=== PATIENT | male | born 1965 | race Caucasian/White ===

== ENCOUNTER → 2020-10-06 07:54 | Outpatient (CLI) | payer OTHER, SELFPAY ==
--- NOTE | ~2020-10-06 | CT_ITS ---
EXAMINATION: CT lung screening DATE: 10/06/2020 08:14 INDICATION: Personal history of nicotine dependence, current smoker with 40 pack year history TECHNIQUE: Computed tomography (CT) of the chest was performed without intravenous contrast. The dose -length product (DLP) was 270.57 mGy-cm. 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 COMPARISON: None FINDINGS: There is mild emphysema. No suspicious pulmonary nodules are identified. The lungs are free of acute opacities. There is no pleural effusion or pneumothorax. No pathologically enlarged thoraci c lymph nodes are identified. The heart size is normal. There is mild thoracic spondylosis. IMPRESSION: 1. Lung-RADS category 1: Negative. Continue annual screening with noncontrast low-dose chest CT in 12 months. Reviewed, dictated and finalized at location A. ASSISTANT IMPRESSION: 1. Lung-RADS category 1: Negative. Continue annual screening with noncontrast l ow-dose chest CT in 12 months.
== END ==
PROVIDERS: PCP Family Medicine; Visit Provider Family Medicine
DX: Z12.2 Encounter for screening for malignant neoplasm of respiratory organs (principal); Z87.891 Personal history of nicotine dependence
CPT/HCPCS: 71271

== ENCOUNTER → 2021-04-22 08:53 | Outpatient (CLI) | payer OTHER, SELFPAY ==
[2021-04-22 18:14] LABS: SARS-CoV-2 RNA PCR Negative
== END ==
PROVIDERS: PCP Family Medicine; Visit Provider Family Medicine
DX: R05 Cough (principal); Z20.822 Contact with and (suspected) exposure to COVID-19
CPT/HCPCS: C9803; U0003; U0005

== ENCOUNTER 2021-04-22 19:15 | Emergency (ER) | payer OTHER, SELFPAY ==
[2021-04-22 19:22] VITALS: BP 147/83; PULSE 98; RESP 18; TEMP 36.8; O2SAT 96
--- NOTE | 2021-04-22 19:25 | ED.URI ---
HPI - URI/Sore Throat General Chief Complaint: Upper Respiratory Infection Stated Complaint: Cough,Chest Congestion,Shortness of breathe History of Present Illness HPI Narrative: This is a 55 year old that presents with shortness of breath and coughing with sinus drainage . Patient states he was tested for Covid -19 and he was negative today but he has this congestion he states in his chest that makes him feel short of breath. Patient denies any nausea and or vomiting and no fever. Related Data Home Medications Medication Instructions Recorded Confirmed cetirizine 10 mg tablet 10 mg PO DAILY 09/29/19 04/22/21 dapsone 25 mg tablet 50 mg PO DAILY tablet 09/29/19 04/22/21 vitamins A,C,N-tdvm-bbilaa 14,320 1 cap PO BID 09/29/19 04/22/21 unit-226 mg-200 unit capsule potassium citrate 10 mEq (1,080 2,160 mg PO BID 09/29/20 04/22/21 mg) tablet,extended release Allergies Allergy/AdvReac Type Severity Reaction Status Date / Time citalopram Allergy Unknown Unknown Verified 04/22/21 19:32 gluten Allergy Unknown BLISTERS Verified 04/22/21 19:32 NKDA Allergy Unknown UNKNOWN Uncoded 04/22/21 19:32 Review of Systems Review of Systems: CONSTITUTIONAL: Denies fever, chills, or sweats. EYES: Denies visual changes, redness, or discharge. ENT: reports rhinorrhea, congestion, sore throat, or otalgia. CARDIOVASCULAR:Denies chest pain, palpitations, or edema. RESPIRATORY: Denies cough or dyspnea. GASTROINTESTINAL: Denies abdominal pain, nausea, vomiting, or diarrhea. GENITOURINARY: Denies dysuria or hematuria. SKIN:[Denies rash or itching. MUSCULOSKELETAL:Denies back pain, joint pain, or myalgia. NEUROLOGIC: Denies headache, numbness, or weakness. PSYCHIATRIC:Denies anxiety or depression [facility] Past Medical History Medical History (Updated 04/22/21 @ 19:55 by Rosalinda Rice NP) Nephrolithiasis Family History Family History Father Hypertension Malignant neoplasm of prostate Sibling Family history of malignant neoplasm of brain Other Cerebrovascular accident Diabetes mellitus Family history of malignant neoplasm Social History Social History (Updated 09/29/20 @ 08:31 by Erica Ray) Social History: Smoking status: Current some day smoker Tobacco type: e-cigarettes/vaping Second hand tobacco smoke exposure: No Alcohol intake: never Alcohol use details: RARE Substance use: never Substance use type: does not use Gender identity (if verbalized by the patient): Male Sexual Orientation (if Verbalized by the Patient): Straight or Heterosexual Comments At time as signature, I have reviewed and agree with nursing past medical, social, surgical and family history. Please see nursing chart for further information. There is no relevant family history pertinent to the presenting complaint. Exam Narrative: GENERAL:Well-appearing, well-nourished, and in no acute distress. HEAD:Normocephalic, atraumatic. EYES: PERRLA and EOMI. ENT: Nares clear, moderate rhinorrhea copious mucous membranes moist. NECK: Supple. CHEST: clear to course on the right side there was minimal but intermittent wheeze noted to auscultation. No respiratory distress. HEART: no chest pain Normal peripheral pulses. ABDOMEN: Soft, normal active bowel sounds. EXTREMITIES: Normal range of motion. No edema. SKIN: Warm, dry, no rash. NEURO: No focal deficits. Alert and oriented x3. Course Vital Signs Vital signs: Vital Signs Temperature 98.2 F 04/22/21 19:22 Pulse Rate 98 04/22/21 19:22 Respiratory Rate 18 04/22/21 19:22 Blood Pressure 147/83 H 04/22/21 19:22 Pulse Oximetry 96 04/22/21 19:22 Temperature 98.2 F 04/22/21 19:22 Pulse Rate 98 04/22/21 19:22 Respiratory Rate 18 04/22/21 19:22 Blood Pressure 147/83 H 04/22/21 19:22 Pulse Oximetry 96 04/22/21 19:22 MDM - URI/Sore Throat Differential Diagnosis Diff
== END 2021-04-22 20:07 | disposition home or self-care (01) ==
PROVIDERS: Emergency Provider Nurse Practitioner Family; PCP Family Medicine
DX: J40 Bronchitis, not specified as acute or chronic (principal); F17.290 Nicotine dependence, other tobacco product, uncomplicated
CPT/HCPCS: 99213; G0463

== ENCOUNTER 2021-04-26 14:37 | Outpatient (CLI) | payer OTHER, SELFPAY ==
--- NOTE | ~2021-04-26 | XR_ITS ---
EXAMINATION: XR chest 2V DATE: 04/26/2021 14:54 INDICATION: Cough TECHNIQUE: PA and lateral views of the chest are obtained. COMPARISON: None available FINDINGS: The lungs are free of acute opacities. There is no pleural effusion or pneumothorax. The ca rdiomediastinal silhouette is normal. There is mild thoracic spondylosis. IMPRESSION: 1. No acute cardiopulmonary abnormality. Reviewed, dictated and finalized at location B.
== END 2021-04-26 14:38 | disposition home or self-care (01) ==
LOC: ANHIMG 14:42
PROVIDERS: PCP Family Medicine; Visit Provider Physician Assistant
DX: R05 Cough (principal); R06.02 Shortness of breath
CPT/HCPCS: 71046

== ENCOUNTER → 2021-07-12 01:55 | Outpatient (CLI) | payer OTHER, SELFPAY ==
[2021-07-12 17:56] LABS: SARS-CoV-2 RNA PCR Negative
== END ==
PROVIDERS: PCP Family Medicine; Visit Provider Physician Assistant
DX: R68.89 Other general symptoms and signs (principal); R05.9 Cough, unspecified; J02.9 Acute pharyngitis, unspecified; Z20.822 Contact with and (suspected) exposure to COVID-19
CPT/HCPCS: C9803; U0003; U0005

== ENCOUNTER 2021-08-10 08:02 | Outpatient (CLI) | payer OTHER, SELFPAY ==
--- NOTE | 2021-08-10 13:09 | WPDPFTINT ---
PFT Procedure Performed PFT Procedure Performed Plethysmography (Lung Vol) Diffusing Cap (DLCO) Flow Vol Loop Spirometry w/o Bronchodil PFT Interpretation This is a pulmonary function test with spirometry, plethysmography and diffusing capacity. The test was performed and results interpreted in accordance with the 2019 and 2005 ATS/ERS Task Force guidelines respectively using the Global Lung Function Initiative-2012 reference equations. Patient demonstrated good effort and cooperation. Reproducibility criteria were met. The quality of the spirometry maneuver was Grade A. Findings: Spirometry: the contour the inspiratory and expiratory flow tracing are normal. The FVC is 4.10 L, 92% predicted. The FEV1 is 2.89 L, 83% predicted. The FEV1: FVC ratio 71%. Plethysmography: The total lung capacity is 7.57 L, 115% predicted. The functional residual capacity is 3.19 L, 94% predicted. The residual volume is 3.02 L, 146% predicted. Diffusing capacity: The absolute diffusion capacity is 27.6, 98% predicted. The diffusing capacity corrected for alveolar volume is 4.85, 109% predicted. Impression: The spirometry is normal without evidence of an obstructive abnormality. The total lung capacity is normal. The increased residual volume is consistent with air trapping. The diffusing capacity is normal. There are no prior studies for comparison
--- NOTE | 2021-08-10 13:14 | WPDPFTINT ---
PFT Procedure Performed PFT Procedure Performed Spirometry with Pre/Post Bronchodilator Plethysmography (Lung Vol) Diffusing Cap (DLCO) Flow Vol Loop PFT Interpretation This is a pulmonary function test with pre and post-bronchodilator spirometry, plethysmography and diffusing capacity. The test was performed and results interpreted in accordance with the 2019 and 2005 ATS/ERS Task Force guidelines respectively using the Global Lung Function Initiative-2012 reference equations. Patient demonstrated good effort and cooperation. Reproducibility criteria were met. The quality of the pre bronchodilator spirometry maneuver was Grade A and post bronchodilator spirometry maneuver was Grade A. Findings: Spirometry: The contour the inspiratory and expiratory flow tracing are normal. The pre bronchodilator FVC is 5.79 L, 108% predicted. The pre bronchodilator FEV1 is 4.54 L, 106% predicted. The FEV1: FVC ratio is 78%. The post bronchodilator FVC is 5.83 L, representing 1% increase. The post bronchodilator FEV1 is 4.77, representing a 5% increase. The post bronchodilator FEV1: FVC ratio was 82%. Plethysmography: The total lung capacity is 8.18 L, 114% predicted. The functional residual capacity is 2.69 L, 69% predicted. The residual volume is 2.21 L, 108% predicted. Diffusing capacity: The absolute diffusion capacity is 29.7, 85% predicted. The diffusing capacity corrected for alveolar volume is 4.08, 91% predicted. Impression: The spirometry is normal without evidence of an obstructive abnormality. There is no significant improvement after inhaling a single dose of albuterol. The lung volumes are normal. The diffusing capacity is normal. There are no prior studies for comparison
== END 2021-08-10 08:03 | disposition home or self-care (01) ==
PROVIDERS: PCP Family Medicine; Visit Provider Physician Assistant
DX: J43.9 Emphysema, unspecified (principal); R06.02 Shortness of breath; Z87.891 Personal history of nicotine dependence
CPT/HCPCS: 94375; 94726; 94729

== ENCOUNTER 2022-07-02 18:32 | Emergency (ER) | payer OTHER, SELFPAY ==
--- NOTE | ~2022-07-02 | XR_ITS ---
XR chest 2V DATE: 07/02/2022 19:04 INDICATION: Cough, shortness of breath TECHNIQUE: 2 views COMPARISON: 04/26/2021 PA and lateral chest FINDINGS: Normal heart size. No hilar or mediastinal enlargement. No pulmonary infiltrate or consolid ation, pleural effusion or pulmonary vascular congestion or pneumothorax. Included skeletal structures are unremarkable. IMPRESSION: No active cardiopulmonary disease Reviewed, dictated and finalized at location A. ING APPRENTICE
[2022-07-02 18:42] VITALS: BP 163/90; PULSE 125; RESP 20; TEMP 36.7; O2SAT 96
--- NOTE | 2022-07-02 18:56 | ED.URI ---
HPI - URI/Sore Throat General Chief Complaint: Upper Respiratory Infection Stated Complaint: congestion Time Seen by Provider: 07/02/22 18:34 Source: patient Mode of arrival: ambulatory Limitations: no limitations History of Present Illness HPI Narrative: 57-year-old male presents to [facility] complains of cough, headache, body aches, chills since yesterday. Patient is an ex-smoker. Patient reports history of emphysema. Patient has been taking [id number] Mucinex and Tylenol with minimal relief. Patient's currently has similar symptoms. Patient denies recent travel. Patient denies shortness of breath, wheezing, nausea vomiting or diarrhea MD elicited complaint: cough, rhinorrhea and nasal congestion Onset (ago): day(s) (1) Able to tolerate fluids by mouth: Yes Treatments prior to arrival: acetaminophen and cold medicine Related Data Home Medications Medication Instructions Recorded Confirmed cetirizine 10 mg tablet (Zyrtec) 10 mg PO DAILY 09/29/19 07/02/22 dapsone 25 mg tablet 50 mg PO DAILY 09/29/19 07/02/22 vitamins A,C,A-egtk-ebrnef 14,320 1 cap PO BID 09/29/19 07/02/22 unit-226 mg-200 unit capsule (ICaps AREDS) Allergies Allergy/AdvReac Type Severity Reaction Status Date / Time citalopram Allergy Unknown Unknown Verified 07/02/22 18:49 gluten Allergy Unknown BLISTERS Verified 07/02/22 18:49 Review of Systems Constitutional: Constitutional: Reports chills, Reports fatigue, Denies fever(s) and Denies weakness ENT: Denies vertigo and Denies dizziness Respiratory: Respiratory: Reports cough, Denies dyspnea and Denies wheezing Gastrointestinal: Gastrointestinal: Denies abdominal pain, Denies diarrhea, Denies nausea and Denies vomiting Integumentary/Breasts: Skin/Breast: Denies rash Neurologic: Denies vertigo and Denies dizziness Allergic/Immunologic: Allergic/Immunologic: Denies lip swelling, Denies throat swelling, Denies tongue swelling and Denies wheezing PMFSH Past Medical History Medical History Nephrolithiasis Family History Family History Father Hypertension Malignant neoplasm of prostate Sibling Family history of malignant neoplasm of brain Other Cerebrovascular accident Diabetes mellitus Family history of malignant neoplasm Social History Social History Social History: Smoking status: Current every day smoker Tobacco type: e-cigarettes/vaping Second hand tobacco smoke exposure: No Smoking end date: 10/07/20 Alcohol intake: never Alcohol use details: RARE Substance use: never Substance use type: does not use Gender identity (if verbalized by the patient): Male Sexual Orientation (if Verbalized by the Patient): Straight or Heterosexual Comments At time of signature, I agree with nursing past medical, surgical, social and family history. There is no relevant family history pertinent to the presenting complaint. Exam Const: General: healthy appearing Nutritional Appearance: well nourished Orientation/consciousness: patient oriented x3 Limitations: no limitations HENMT: Head: normal to inspection Ears: external ears normal and TM's normal bilaterally Face/Nose/Sinus: Normal external nose present Face and sinus: normal facial exam Mouth: Yes Normal oral and palatal mucosa present Teeth and gingiva: dentition normal Throat: posterior oropharynx normal and uvula midline Eyes: Conjunctivae: conjunctivae normal Neck: Neck: normal visual inspection Resp: Effort & Inspection: normal respiratory effort and not labored Auscultation: clear to auscultation bilaterally, no crackles, no rales, no rhonchi, no wheezes and diminished lung sounds (bilateral bases ) Cardio: Rate: regular rate Rhythm: regular rhythm Heart sounds: no murmurs Skin: General skin exam: normal
[2022-07-02 19:30] VITALS: PULSE 116; O2SAT 95
== END 2022-07-02 19:30 | disposition home or self-care (01) ==
PROVIDERS: Emergency Provider Nurse Practitioner Family; PCP Family Medicine
DX: U07.1 COVID-19 (principal)
CPT/HCPCS: 71046; 87426; 87804; 99213; C9803; G0463

== ENCOUNTER 2022-07-22 10:33 | Emergency (ER) | payer OTHER, SELFPAY ==
[2022-07-22 10:48] VITALS: BP 135/92; PULSE 92; RESP 18; TEMP 36.2; O2SAT 96
--- NOTE | 2022-07-22 11:12 | ED.URI ---
HPI - URI/Sore Throat General Chief Complaint: Upper Respiratory Infection Stated Complaint: Cough,Sore Throat,Headache Time Seen by Provider: 07/22/22 11:12 Source: patient Mode of arrival: ambulatory Limitations: no limitations History of Present Illness HPI Narrative: 57-year-old male presents with his with complaint of cough, chest congestion, fatigue, chills, headache that started yesterday. Reports hit me quickly . Denies shortness of breath. Afebrile. Denies nausea vomiting diarrhea. Reports that he had COVID 2 weeks ago, symptoms were mild and had all resolved. All systems reviewed and negative except as noted above. Related Data Home Medications Medication Instructions Recorded Confirmed dapsone 25 mg tablet 50 mg PO DAILY 09/29/19 07/22/22 Allergies Allergy/AdvReac Type Severity Reaction Status Date / Time citalopram Allergy Unknown Unknown Verified 07/22/22 10:43 gluten Allergy Unknown BLISTERS Verified 07/22/22 10:43 Review of Systems Review of Systems: CONSTITUTIONAL: Denies fever. Reportschills, or sweats. reports EYES: Denies visual changes, redness, or discharge. ENT: Reports rhinorrhea, congestion, sore throat, or otalgia. CARDIOVASCULAR: Denies chest pain, palpitations, or edema. RESPIRATORY: reports cough. Denies dyspnea. GASTROINTESTINAL: Denies abdominal pain, nausea, vomiting, or diarrhea. GENITOURINARY: Denies dysuria or hematuria. SKIN: Denies rash or itching. MUSCULOSKELETAL: Denies back pain, joint pain, or myalgia. NEUROLOGIC: Denies headache, numbness, or weakness. PSYCHIATRIC: Denies anxiety or depression. All other systems reviewed are negative, except as documented in HPI. [facility] Past Medical History Medical History Nephrolithiasis Family History Family History Father Hypertension Malignant neoplasm of prostate Sibling Family history of malignant neoplasm of brain Other Cerebrovascular accident Diabetes mellitus Family history of malignant neoplasm Social History Social History Social History: Smoking status: Current every day smoker Tobacco type: e-cigarettes/vaping Second hand tobacco smoke exposure: No Smoking end date: 10/07/20 Alcohol intake: never Alcohol use details: RARE Substance use: never Substance use type: does not use Gender identity (if verbalized by the patient): Male Sexual Orientation (if Verbalized by the Patient): Straight or Heterosexual Comments At time of signature, agree with nursing past medical, surgical, social and family history. There is no relevant family history pertinent to the presenting complaint. Exam Narrative: GENERAL: This is a well-nourished, well-developed patient. Patient ill-appearing but no distress. HEAD: normocephalic, atraumatic. EYES: PERRL. Sclera clear/white. Vision is grossly intact. EARS: External ears normal, auditory canals clear and without drainage, TMs normal without perforation. Hearing grossly intact. NOSE: External nose normal with Clear nasal drainage, erythema to both nares. THROAT: Mucous membranes moist, posterior pharynx clear. NECK: Neck supple, non-tender without lymphadenopathy, masses or thyromegaly. CARDIOVASCULAR: Regular rate and rhythm without murmurs, gallops, or rubs. RESPIRATORY: Clear to auscultation. Breath sounds equal bilaterally. No wheezes, rales, or rhonchi. SKIN: warm, Dry, intact with no suspicious lesions or rash, good texture and turgor. NEURO: awake, alert, and oriented to person, place and time. There were no obvious focal neurologic abnormalities. EXTREMITIES: No joint tenderness, effusion, or edema noted. Course Course Level of Care: Express [facility] Visit Vital Signs Vital signs: Vital Signs Temperature 36.2 C L 07/22/22 10:48 Pulse Rate 92
== END 2022-07-22 11:37 | disposition home or self-care (01) ==
PROVIDERS: Emergency Provider Nurse Practitioner Family; PCP Family Medicine
DX: J06.9 Acute upper respiratory infection, unspecified (principal); F17.290 Nicotine dependence, other tobacco product, uncomplicated
CPT/HCPCS: 87804; 99213; G0463

== ENCOUNTER → 2023-03-26 11:12 | Outpatient (CLI) | payer OTHER, SELFPAY ==
--- NOTE | ~2023-03-26 | XR_ITS ---
AP and lateral views of the right hip Clinical history: Pain Findings: No acute fracture or dislocation is seen. Possible bone island or other focal sclerotic les ion in the right iliac bone. Osseous alignment is anatomic. Bilateral hip and SI joint spaces are pre served. Soft tissues are unremarkable. Impression: No fracture or dislocation. Possible bone island versus other sclerotic lesion in the right iliac bone. Reviewed, dictated and finalized at location . Impression: No fracture or dislocation. Possible bone island versus other sclerotic lesion in the right iliac bone.
== END ==
PROVIDERS: PCP Family Medicine; Visit Provider Family Medicine
DX: M25.551 Pain in right hip (principal)
CPT/HCPCS: 73502

== ENCOUNTER 2023-05-30 02:58 | Day surgery (SDC) | payer OTHER, SELFPAY ==
[2023-05-21 14:02] VITALS: BMI 39.2
--- NOTE | 2023-05-29 16:33 | PM.HPGS ---
History of Present Illness History of Present Illness Consent: Risks, benefits, and alternatives have been discussed and questions answered. Patient agrees to proceed with procedure. Chief complaint: hx colon polyps Narrative: Justo Arevalo is a 57 year old male referred for colon cancer screening. Five years ago he had a tubular adenoma removed. Review of Systems Review of Systems: All systems reviewed & are unremarkable except as noted in HPI and below PMFSH Past Medical History Medical History Nephrolithiasis Family History Family History Father Hypertension Malignant neoplasm of prostate Sibling Family history of malignant neoplasm of brain Other Cerebrovascular accident Diabetes mellitus Family history of malignant neoplasm Social History Social History Social History: Years smoked: 38 Smoking status: Former smoker Tobacco type: e-cigarettes/vaping Second hand tobacco smoke exposure: No Smoking end date: 10/07/20 Alcohol intake: current Alcohol use details: Rarely Substance use: never Substance use type: does not use Living arrangements: other Occupation/Education: occupation Gender identity (if verbalized by the patient): Male Sexual Orientation (if Verbalized by the Patient): Straight or Heterosexual Meds Home Medications and Allergies Home Medications Medication Instructions Recorded Confirmed Type dapsone 25 mg tablet 50 mg PO DAILY 09/29/19 05/30/23 History dulaglutide 1.5 mg/0.5 mL 2.5 mg subcut WEEKLY 05/21/23 05/30/23 History subcutaneous pen injector (Trulicity) Allergies Allergy/AdvReac Type Severity Reaction Status Date / Time citalopram Allergy Unknown Unknown Verified 05/30/23 06:22 gluten Allergy Unknown BLISTERS Verified 05/30/23 06:22 Exam Resp: Auscultation: clear to auscultation bilaterally Cardio: Rate: regular rate Rhythm: regular rhythm GI: GI Palp: Yes Soft to palpation and No Tenderness to palpation present (GI) Assessment and Plan Assessment and plan (1) Colon cancer screening: Code(s): Z12.11 - Encounter for screening for malignant neoplasm of colon Status: Acute Assessment and Plan: Colonoscopy with possible biopsy or polypectomy or cautery or injection of substances.
[2023-05-30 06:26] VITALS: BP 120/78; PULSE 80; RESP 16; TEMP 36.2; O2SAT 96; BMI 38.0
[2023-05-30] MEDS: LACTATED RINGERS 1,000 ML 150 ML IV CONT (06:38)
--- NOTE | 2023-05-30 07:17 | P.PNAN_ITS ---
Anes - Initial Pre Proc Eval Procedure: Operation Date: 05/30/23 07:30 Proposed Procedures p Colonoscopy - Cheng Ramon MD Date/Time: 05/30/23 07:17 Surgeon: Cheng Ramon MD Pre Op Diagnosis: hx colon polyps Patient Data Age: 57 Gender: M Height: 1.7 m Weight: 110.3 kg Last Vital Signs Temp 97.1 F L 05/30/23 06:26 Pulse 80 05/30/23 06:26 Resp 16 05/30/23 06:26 BP 120/78 05/30/23 06:26 Pulse Ox 96 05/30/23 06:26 O2 Del Method Room Air 05/30/23 06:26 Allergies Allergy/AdvReac Type Severity Reaction Status Date / Time citalopram Allergy Unknown Unknown Verified 05/30/23 06:22 gluten Allergy Unknown BLISTERS Verified 05/30/23 06:22 Home Medications Medication Instructions Recorded Confirmed Type dapsone 25 mg tablet 50 mg PO DAILY 09/29/19 05/30/23 History dulaglutide 1.5 mg/0.5 mL 2.5 mg subcut WEEKLY 05/21/23 05/30/23 History subcutaneous pen injector (Trulicity) Patient hx anesthesia problems: none Family hx anesthesia problems: none Results Review: All pre-operative results and documents have been reviewed as part of the pre- operative evaluation. [facility] Past Medical History Medical History Nephrolithiasis Family History Family History Father Hypertension Malignant neoplasm of prostate Sibling Family history of malignant neoplasm of brain Other Cerebrovascular accident Diabetes mellitus Family history of malignant neoplasm Social History Social History Social History: Years smoked: 38 Smoking status: Former smoker Tobacco type: e-cigarettes/vaping Second hand tobacco smoke exposure: No Smoking end date: 10/07/20 Alcohol intake: current Alcohol use details: Rarely Substance use: never Substance use type: does not use Living arrangements: other Occupation/Education: occupation Gender identity (if verbalized by the patient): Male Sexual Orientation (if Verbalized by the Patient): Straight or Heterosexual Anes - Eval Final PreProcedure Day of Procedure 05/30/23 07:17 Patient weight: obese Heart: regular rate and rhythm Lungs: clear to auscultation Airway: Mallampati scale class II Neurological: alert and oriented Last oral intake: >/= 8 hours ASA classification: II Emergent: no Anesthetic plan: proceed Anesthesia type and monitoring: general GIVS and standard monitoring Results Review: All pre-operative results and documents have been reviewed as part of the pre- operative evaluation. Informed Consent: The patient's anesthetic plan and its attendant risks and benefits were discussed with the patient/family/POA. Questions were solicited and answers provided to the satisfaction of the patient/family/POA.
[2023-05-30 07:54] VITALS: BP 101/72; PULSE 80; RESP 20; O2SAT 95
[2023-05-30 08:00] VITALS: BP 112/82; PULSE 74; O2SAT 97
[2023-05-30 08:10] VITALS: BP 112/81; PULSE 72; O2SAT 97
[2023-05-30 08:15] VITALS: BP 119/72; PULSE 81; O2SAT 97
== END 2023-05-30 08:23 | disposition home or self-care (01) ==
PROVIDERS: PCP Family Medicine; Visit Provider Internal Medicine Gastroenterology
PROC: 0DJD8ZZ Inspection of Lower Intestinal Tract, Via Natural or Artificial Opening Endoscopic (ICD-10-PCS; CPT 45378; principal; 2023-05-30 07:30)
DX: Z12.11 Encounter for screening for malignant neoplasm of colon (principal); K57.30 Diverticulosis of large intestine without perforation or abscess without bleeding; F17.290 Nicotine dependence, other tobacco product, uncomplicated; Z86.010 Personal history of colon polyps; Z80.42 Family history of malignant neoplasm of prostate; Z80.8 Family history of malignant neoplasm of other organs or systems; Z79.85 Long-term (current) use of injectable non-insulin antidiabetic drugs; E66.9 Obesity, unspecified; Z68.38 Body mass index [BMI] 38.0-38.9, adult
CPT/HCPCS: G0105; J2704; J7120

== ENCOUNTER 2024-02-29 07:43 | Outpatient (CLI) | payer OTHER, SELFPAY ==
--- NOTE | 2024-02-29 07:57 | ECG_ITS ---
Test Date: 2024-02-29 08:10:19 Measurements Intervals [place] Rate: 90 P: 33 OH: 157 QRS: 73 QRSD: 86 T: 15 QT: 327 QTc: 401 Interpretive Statements SINUS RHYTHM NORMAL ECG No previous ECG available for comparison Electronically Signed On 02-29-2024 12:33:52 CDT by Javier Su D.O.
== END 2024-02-29 07:44 | disposition home or self-care (01) ==
LOC: ANHSURGERY 07:45
PROVIDERS: PCP Family Medicine; Visit Provider Surgery
DX: K40.90 Unilateral inguinal hernia, without obstruction or gangrene, not specified as recurrent (principal); F17.210 Nicotine dependence, cigarettes, uncomplicated; Z01.818 Encounter for other preprocedural examination
CPT/HCPCS: 36415; 86850; 86900; 86901; 93005

== ENCOUNTER 2024-03-07 00:40 | Day surgery (SDC) | payer OTHER, SELFPAY ==
[2024-02-28 15:49] VITALS: BMI 30.6
--- NOTE | 2024-02-28 15:55 | PC.NURSE ---
Report to the Outpatient Waiting Room, entrance under the green pavilion located off [facility], at time _0600_ on date _[id number]_. Planned Procedure Time: _0730_. Time changes happen often and if your time is changed the preop area will call you the afternoon before. - You and your visitor will be asked to self-screen and do not enter if you have any COVID symptoms. - A mask is optional within the hospital at this time. Patients may have clear liquids (water, carbonated beverages, clear teas, apple juice) until 3 hours prior to surgery with a maximum of 20 ounces. - No food from midnight until time of surgery Take the following medications with a SIP of water the morning of surgery: ___None DO NOT STOP ANY OF YOUR OTHER PRESCRIPTION MEDICATIONS PRIOR TO SURGERY ?EXCEPT THE FOLLOWING Medications to discontinue per physician Trulicity Date to take last dose__Hold today and till after surgery Please no make-up, nail lao, hairspray, perfume, deodorant, or body powder the day of surgery. No jewelry (including any body piercings) or valuables the day of surgery, leave them at home. Please take a shower or bath the night before, or the morning of, surgery with an antibacterial soap. Wear comfortable, loose fitting clothing. - Jewelry must be removed prior to entering the operating room. Rings and piercings that are not removed may be cut off. - The hospital will not accept responsibility for valuables. - Please leave all valuables, including medications, at home the day of surgery. If you are going home after surgery, a licensed livery car driver must drive you home. - NO public transportation without another adult if you receive anesthesia. - We recommend that an adult stay with you for 24 hours following discharge. - We also recommend that you do not drive, make important decision, drink alcoholic beverages, or take any drugs that were not prescribed by your health care provider for at least 24 hours after your discharge time. Follow any additional instructions given to you from your surgeon. If you or anyone in your household have experienced Covid symptoms in the past week, please notify your surgeon or the nurse liaison at the phone number below for possible testing. Telephone instructions given to __Haabena___and asked if any additional questions and then verbalized understanding. Patient advised to call surgeon office or pre surgery nurse liaison [phone] if any additional questions.
--- NOTE | 2024-03-06 14:43 | WPDANESEPPF ---
Anes - Initial Pre Proc Eval Procedure: Operation Date: 03/07/24 07:30 Proposed Procedures p Robotic Assisted Laparoscopic Right Inguinal Hernia Repair with Mesh - Rock Esparza MD Date/Time: 03/06/24 14:43 Surgeon: Rock Esparza MD Pre Op Diagnosis: reducible right inguinal hernia Patient Data Age: 58 Gender: M Height: 1.7 m Weight: 88.6 kg Allergies Allergy/AdvReac Type Severity Reaction Status Date / Time citalopram Allergy Unknown Itching Verified 03/07/24 06:15 gluten Allergy Unknown BLISTERS Verified 03/07/24 06:15 Home Medications Medication Instructions Recorded Confirmed Type dapsone 25 mg tablet 50 mg PO DAILY 09/29/19 03/07/24 History dulaglutide 1.5 mg/0.5 mL 2.5 mg subcut WEEKLY 05/21/23 03/07/24 History subcutaneous pen injector (Trulicity) cetirizine 10 mg capsule (Zyrtec) 10 mg PO DAILY PRN Allergy Symptoms 02/18/24 03/07/24 History psyllium husk 0.52 gram capsule 0.52 g PO BID 02/28/24 03/07/24 History (Fiber-Caps (psyllium husk)) Patient hx anesthesia problems: none Family hx anesthesia problems: none Results Review: All pre-operative results and documents have been reviewed as part of the pre-operative evaluation. [facility] Past Medical History Medical History Nephrolithiasis Surgical History Surgical History H/O ureteroscopy right History of lumpectomy right breast removal benign tumor Family History Family History Father Hypertension Malignant neoplasm of prostate Diabetes mellitus Sibling Family history of malignant neoplasm of brain Diabetes mellitus Other Cerebrovascular accident Family history of malignant neoplasm Social History Social History Social History: Smoking packs per day: 1 Smoking cigarettes per day: 20.0 Years smoked: 25 Smoking pack-years: 25.00 Smoking status: Former smoker Tobacco type: cigarettes and e-cigarettes/vaping Second hand tobacco smoke exposure: No Smoking end date: 02/27/09 Additional smoking assessment comments: quit vaping 3 years ago. Alcohol intake: current Alcohol use details: Rarely Substance use: never Substance use type: does not use Do You Feel Safe in your Home?: Yes Lack of Transportation: No Lack of Food: Never True Current Housing: I Have Housing Concerned About Future Housing: No Difficulty Paying Gas/Electric Bills: No Difficulty Paying for Meds: No Currently Unemployed: No Education: Associate Degree Difficulty w/ Childcare or Family Care: No Living arrangements: with family Occupation/Education: occupation Additional occupation/education comments: [employer] Gender identity (if verbalized by the patient): Male Sexual Orientation (if Verbalized by the Patient): Straight or Heterosexual Spiritual care concerns: No Anes - Eval Final PreProcedure Day of Procedure 03/06/24 14:43 Patient weight: obese Heart: regular rate and rhythm Lungs: clear to auscultation Airway: Mallampati scale class II Neurological: alert and oriented Last oral intake: >/= 8 hours ASA classification: II Emergent: no Anesthetic plan: proceed Anesthesia type and monitoring: general ETT and standard monitoring Results Review: All pre-operative results and documents have been reviewed as part of the pre-operative evaluation. Informed Consent: The patient's anesthetic plan and its attendant risks and benefits were discussed with the patient/family/POA. Questions were solicited and answers provided to the satisfaction of the patient/family/POA.
[2024-03-07] VITALS (10 sets, daily range): BP systolic 96–143; BP diastolic 53–90; PULSE 72–86; RESP 16–20; TEMP 36.2–36.3; O2SAT 94–100
[2024-03-07] MEDS: LACTATED RINGERS 1,000 ML 30 ML IV CONT ×3 (06:53→10:54)
[2024-03-07] MEDS: ACETAMINOPHEN 500 MG TABLET 1000 MG PO (07:02)
[2024-03-07] MEDS: KETOROLAC 15 MG/ML VIAL (*BKC) IV PUSH ×2 (07:02→09:18)
--- NOTE | 2024-03-07 07:16 | WPDHPUPDATE1 ---
History and Physical Update Update Date/Time: 03/07/24 07:16 History and Physical has been reviewed, including an updated exam of the patient. There are NO changes in the patient's condition. Risks, benefits, and alternatives have been discussed and questions answered. Patient agrees to proceed with procedure.
[2024-03-07] MEDS: ceFAZolin 2 GM/D5W 50 ML 2 GM/50 ML BAG IVPB (07:30)
[2024-03-07] MEDS: LIDO 1%/EPINEPHRINE 1:100,000 50 ML VIAL 30 ML INFILTRATE (08:15)
[2024-03-07] MEDS: BUPivacaine HCL 0.5% 10 ML AMP 30 ML INFILTRATE (08:15)
--- NOTE | 2024-03-07 10:06 | W.PM.PROC2 ---
Procedure Note - Detailed Date of Procedure 03/07/24 Pre-op Diagnosis Reducible right inguinal hernia Post-op Diagnosis Same Procedure Performed Robotic assisted laparoscopic right inguinal hernia repair a Bard 3D mid weight mesh. 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 Imaging showed a fat contain moderately large right inguinal hernia. On exam he also had evidence of right inguinal hernia. He presents now for an a robotic assisted laparoscopic right inguinal hernia repair with mesh. Findings Patient a large indirect right inguinal hernia defect. There was no incarcerated contents within the hernia sac. No evidence of a left inguinal hernia was seen laparoscopically. Description of Procedure After informed consent was obtained patient brought to the operating room placed supine position and general endotracheal anesthesia was administered. The abdomen and bilateral groin regions were then prepped and draped usual sterile fashion. A time-out was then performed correctly identifying the patient as well as procedure to be performed verifying the site marking. He was already given some perioperative IV antibiotics. I then entered the abdomen left upper quadrant utilizing a 10mm Optiview port. Once inside the abdomen insufflated to adequate pneumoperitoneum of 15mmHg of CO2. I then placed the patient 15? Trendelenburg the head-down to allow the bowel to fall out of the pelvis. I then could easily see a large indirect inguinal hernia defect on the right side but no evidence of a inguinal hernia on the left side. There was no incarcerated contents within the right inguinal hernia sac. I then placed additional robotic 8mm trocar ports across the mid abdomen region. This is all done under direct visualization. The [employer] robot was then brought to the patient's bedside and docked with the arms attached the robotic ports. Robotic instruments were then advanced into the abdomen direct visualization and scrubbed out to sit down at the robotic console and perform the dissection robotically. I 1st started by making a preperitoneal flap starting anterior medial to the right anterior superior iliac spine extending across the right lower abdomen to the midline. I divided the right side of the medial umbilical ligament. A kidney my dissection distally medially until I identified the pubic tubercle. I dissected inferior to the pubic tubercle down into the space of Retzius for couple cm. Laterally the peritoneum was dissected down to I reached the indirect inguinal hernia sac going into the internal ring. The inferior epigastric vessels are identified and preserved without injury. I then proceeded to dissect the large indirect inguinal hernia sac out of the inguinal canal. I divided some of the cremasteric muscle fibers identified the vas deferens and testicular vessels. I then robotically dissected the hernia sac away from the street structures and everted the hernia sac. I then continued my dissection the hernia sac and peritoneum proximally up until I was onto the psoas muscle. I dissected up until the vas deferens and testicular vessels and made sure that neck dissection done so the mesh would not roll up with closure of the peritoneum. There was a large cord lipoma which entered the inguinal canal. This is dissected free of the cord structures as well and resected. The fatty tissue was left in the abdomen to be removed at the end the case. Once I had the dissection done I saw no evidence I direct defect or femoral defect. A extra-large piece of right sided oriented in Bard 3D mid weight mesh measuring [id number] was chosen for the repair. Displaced to the 10mm physical therapy assistant trocar port site and then oriented into the right groin dissected region covering the home myopectineal orifice. The edge of the mesh medially attende
[2024-03-07] MEDS: fentaNYL CITRATE INJ (*CRX) 100 MCG/2 ML VIAL 25 MCG IV PUSH ×2 (10:14→10:19)
[2024-03-07] MEDS: HYDROmorphone HCL INJ (*CRX) 1 MG/ML SYR 0.5 MG IV PUSH ×4 (10:25→10:54)
== END 2024-03-07 12:35 | disposition home or self-care (01) ==
PROVIDERS: PCP Family Medicine; Visit Provider Surgery
PROC: 8E0Y4CZ Robotic Assisted Procedure of Lower Extremity, Percutaneous Endoscopic Approach (ICD-10-PCS; CPT 49650; principal; 2024-03-07 07:30)
DX: K40.90 Unilateral inguinal hernia, without obstruction or gangrene, not specified as recurrent (principal); Z87.891 Personal history of nicotine dependence
CPT/HCPCS: 49650; S2900; A9270; C1781; J0690; J1100; J1170; J1885; J2250; J2371; J2405; J2704; J3010; J7120

== ENCOUNTER 2024-03-08 11:35 | Emergency (ER) | payer OTHER, SELFPAY ==
--- NOTE | ~2024-03-08 | CT_ITS ---
EXAMINATION: CT abdomen pelvis w con DATE: 03/08/2024 13:15 INDICATION: Recent right hernia repair. TECHNIQUE: Computed tomography (CT) of the abdomen and pelvis was performed with 100 cc Omnipaque 350 intravenous contrast. The dose-length product was 1295.43 mGy-cm. Automated exposure control and ite rative reconstruction technique were employed. COMPARISON: Scrotal ultrasound dated 03/08/2024. FINDINGS: There is fluid and soft tissue in the right inguinal canal and scrotum. There are no soft t issue changes in the right inguinal location extending into the inguinal canal, consistent with recen t hernia repair. There is extensive subcutaneous gas in the lower abdominal wall, right femoral locat ion, scrotum and upper abdomen. There is free intraperitoneal air, also consistent with recent surger y. Mildly distended small bowel loops in the right lower abdomen, likely focal adynamic ileus. The liver, spleen, pancreas, adrenal glands and kidneys are unremarkable. Gallbladder is present. No lymphadenopathy. There is bibasilar atelectasis. IMPRESSION: 1. There are findings consistent with postsurgical changes of recent hernia repair. 2: Focal soft tissue and fluid in the right inguinal canal and scrotum, possibly postoperative. 3: Mildly dilated small bowel right lower abdomen with air-fluid levels, most likely focal adynamic ileus. Reviewed, dictated and finalized at location B. IMPRESSION: 1. There are findings consistent with postsurgical changes of recent hernia rep air. 2: Focal soft tissue and fluid in the right inguinal canal and scrotum, possibl y postoperative. 3: Mildly dilated small bowel right lower abdomen with air-fluid levels, most likely focal adynamic ileus.
--- NOTE | ~2024-03-08 | US_ITS ---
US scrotum doppler INDICATION: Right testicular swelling TECHNIQUE: Testicular sonogram utilizing grayscale and color Doppler FINDINGS: The testes are normal in size and appearance. No focal lesions are seen. The right testes measures 4.2 x 2.8 x 2.7 cm centimeters, and the left testis measures 4 x 2.3 x 2.9 cm cm. There is n ormal vascular flow to both testes. The right and left epididymides appear normal. There is a right hydrocele. IMPRESSION: 1. Right hydrocele. Reviewed, dictated and finalized at location B. IMPRESSION: 1. Right hydrocele.
[2024-03-08 11:37] VITALS: BP 125/71; PULSE 80; RESP 16; TEMP 36.5; O2SAT 98
--- NOTE | 2024-03-08 13:05 | ED.GENADULT ---
HPI - General Adult General Chief complaint: Urogenital-Male Stated complaint: hernia surgery yesterday R swollen testicle Time Seen by Provider: 03/08/24 12:17 History of Present Illness HPI narrative: 58-year-old male presenting to the emergency department for evaluation for right testicular pain. Patient did have a hernia repair yesterday and noticed increased ecchymosis and swelling above the right testicle today. Patient contacted his physician and was instructed to present to the ED for ultrasound. Related Data Home Medications Medication Instructions Recorded Confirmed dapsone 25 mg tablet 50 mg PO DAILY 09/29/19 03/07/24 dulaglutide 1.5 mg/0.5 mL 2.5 mg subcut WEEKLY 05/21/23 03/07/24 subcutaneous pen injector (TrHemarina) cetirizine 10 mg capsule (Zyrtec) 10 mg PO DAILY PRN Allergy Symptoms 02/18/24 03/07/24 psyllium husk 0.52 gram capsule 0.52 g PO BID 02/28/24 03/07/24 (Fiber-Caps (psyllium husk)) Allergies Allergy/AdvReac Type Severity Reaction Status Date / Time citalopram Allergy Unknown Itching Verified 03/07/24 06:15 gluten Allergy Unknown BLISTERS Verified 03/07/24 06:15 Review of Systems Review of Systems: All systems reviewed & are unremarkable except as noted in HPI and below PMFSH Past Medical History Medical History Nephrolithiasis Surgical History Surgical History H/O ureteroscopy right History of lumpectomy right breast removal benign tumor Family History Family History Father Hypertension Malignant neoplasm of prostate Diabetes mellitus Sibling Family history of malignant neoplasm of brain Diabetes mellitus Other Cerebrovascular accident Family history of malignant neoplasm Social History Social History Social History: Smoking packs per day: 1 Smoking cigarettes per day: 20.0 Years smoked: 25 Smoking pack-years: 25.00 Smoking status: Former smoker Tobacco type: cigarettes and e-cigarettes/vaping Second hand tobacco smoke exposure: No Smoking end date: 02/27/09 Additional smoking assessment comments: quit vaping 3 years ago. Alcohol intake: current Alcohol use details: Rarely Substance use: never Substance use type: does not use Do You Feel Safe in your Home?: Yes Lack of Transportation: No Lack of Food: Never True Current Housing: I Have Housing Concerned About Future Housing: No Difficulty Paying Gas/Electric Bills: No Difficulty Paying for Meds: No Currently Unemployed: No Education: Associate Degree Difficulty w/ Childcare or Family Care: No Living arrangements: with family Occupation/Education: occupation Additional occupation/education comments: [employer] Gender identity (if verbalized by the patient): Male Sexual Orientation (if Verbalized by the Patient): Straight or Heterosexual Spiritual care concerns: No Exam Narrative: APPEARANCE: Well appearing, no pain, no distress, well-nourished. HEAD: normocephalic, atraumatic. EYES: PERRLA/EOMI, conjunctivae clear. NOSE: Normal no drainage EARS:TMS clear with good light reflex. THROAT: Pharynx clear, no exudate. NECK: Supple. No adenopathy, no masses. RESPIRATORY: Airway patent, respirations nonlabored. Clear to auscultation bilaterally, no rales, rhonchi, wheezing. CARDIOVASCULAR: Regular rate and rhythm without murmurs rubs or gallops. ABDOMINAL: Right groin swelling with ecchymosis, no testicular ecchymosis MUSCULOSKELETAL: Moves all extremities. Strength/ROM intact, No edema, No calf tenderness. NEURO: Alert. Cranial nerves II through XII intact. Good gait. Good coordination SKIN: Warm, dry. Normal Color Course Vital Signs Vital signs: Vital Signs Temperature 97.7 F 03/08/24 11:
[2024-03-08 13:11] LABS: Estimated CRCL calculation 85 ml/min; Estimated Glomerular Filt Rate > 60
[2024-03-08 13:17] LABS: Basophils Percent Auto 0.3 % (0.2-1.2); Eosinophils Absolute Auto 0.2 K/mm3 (0-0.3); Eosinophils Percent Auto 1.5 % (0-4.4); Hematocrit 37.9 % (42.0-52.0); Hemoglobin 12.1 g/dL (14.0-18.0); Immature Granulocyte Absolute 0.04 K/mm3 (0.00-0.031); Immature Granulocyte Percent A 0.3 % (0-0.5); Lymphocytes Absolute Auto 3.02 K/mm3 (0.9-3.2); Lymphocytes Percent Auto 25.9 % (18.3-44.2); Mean Corpuscular HGB Conc 31.9 g/dl (32-36); Mean Corpuscular Hemoglobin 31.4 pg (26-34); Mean Corpuscular Volume 98.4 fl (80-100); Monocytes Absolute Auto 1.3 K/mm3 (0.1-0.6); Monocytes Percent Auto 11.3 % (2.6-8.5); Neutrophils Absolute Auto 7.1 K/mm3 (1.3-6.7); Neutrophils Percent Auto 60.7 % (45.5-73.1); Platelet Count Result 257 k/mm3 (150-375); Red Blood Count 3.85 M/mm3 (4.6-6.20); Red Cell Distribution Width 13.7 % (11.5-14.5); White Blood Count 11.7 K/mm3 (4.5-10.0)
[2024-03-08 13:24] LABS: Alanine Aminotransferase 31 U/L (6-50); Albumin Level 3.7 g/dL (3.5-5.1); Alkaline Phosphatase 66 U/L (38-126); Anion Gap 7 mmol/L (4-12); Aspartate Amino Transferase 26 U/L (17-59); Bilirubin,Total 0.6 mg/dL (0.2-1.3); Blood Urea Nitrogen 16 mg/dL (9-20); Calcium 8.2 mg/dL (8.4-10.2); Carbon Dioxide 27 mmol/L (22-30); Chloride 105 mmol/L (98-107); Estimated CRCL calculation 95 ml/min; Estimated Glomerular Filt Rate > 60; Glucose 92 mg/dL (65-110); Sodium 139 mmol/L (137-145)
== END 2024-03-08 13:50 | disposition home or self-care (01) ==
PROVIDERS: Emergency Provider Emergency Medicine; PCP Family Medicine
DX: N43.3 Hydrocele, unspecified (principal); R10.9 Unspecified abdominal pain; Z98.890 Other specified postprocedural states; Z87.442 Personal history of urinary calculi; Z87.891 Personal history of nicotine dependence; Z79.85 Long-term (current) use of injectable non-insulin antidiabetic drugs
CPT/HCPCS: 36415; 74177; 76870; 80053; 85025; 93976; 99284; Q9967

== ENCOUNTER 2024-09-18 10:43 | Outpatient (CLI) | payer OTHER, SELFPAY ==
--- OUTSIDE RECORDS SUMMARY | 2024-09-18 11:29 | XMS_ITS | Continuity of Care Document ---
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 It does not include entries that were removed or entered in error. Problem Status Onset Date Problem Type Date of Resolution Comments Source visit for: services physical Active Condition DoD allergic rhinitis Active Condition ex plained proper use of Flonase. pt can cont Claritin. pt should f/u if not improving. DoD visit for: services physical mcfp Active Condition cleared for mcfp. DoD lower back pain Active Condition DoD back strain lumbar Active Condition p t to cont meds as directed. Instructions on use of ice/heat/stretc h. rtc if sxs worse/no better. DoD pterygium Active Condition Nasal OU DoD pinguecula Active Condition DoD dry eye syndrome Active Condition DoD muscle spasm Inactive Condition d/w MAZIN Mena and reviewed notes from apt w/ Prior in February. Per VO MAZIN Mena, pt is given Toradol 60 mg in 2 ml IM in R DG site, shashank well. Pt given 24 hrs quarters and instr to cont w/ rest, gentle stretching/ROM exer, appso of heat/ice to area and p/u RF of Naprosyn and Flexeril at pharm. Pt has f/u khoa fonseca/ MAZIN Mena on May for further eval/tx. DoD atypical chest pain Active Condition No recent chest pain.Normal EKG. Because of Fam hx, will get stress test. 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 Pt to schedule appt. for any conerns/issues. DoD upper respiratory infection Inactive Condition DoD shoulder strain Inactive Condition DoD Other Physical Therapy Active Condition DoD joint pain, localized in the shoulder Active Condition SUBJECTIVE WEAKNESS, BUT NOT SUPPORTED ON EXAM. WILL GO WITH PLAIN FILMS AND PT CONSULT. MAY CONSIDER MRI/ORTHO PENDING COURSE. ALSO WILL GO WITH TRIAL OF NSAID. [facility] Medications Combined list of outpatient medications from Department of Defense and Veterans Affairs facilities.Medications provided include 1) outpatient medications from the last 15 months, and 2) patient-reported medications. Medication Details Route Status Patient Instructions Prescription Expires Prescription Number Last Dispense Date Ordering Provider Order Date Order Qty Source DAPSONE (dapsone), 25 MG, TABLET, ORAL, NOVITIUM/AN I PH, 100 ea. BOTTLE Active [id number] 2023 180 Pharmac y Data Transac tion Service Facilit y DAPSONE (dapsone), 25 MG, TABLET, ORAL, NOVITIUM/AN I PH, 100 ea. BOTTLE Active [id number] 2023 180 Pharmac y Data Transac tion Service Facilit y SHINGRIX (varicella- zoster virus glycoprotei n E,rec/AS01B adjuvant/PF ), 50 MCG/0.5, KIT, INTRAMUSC, GLAXOSMITHK LINE, 1 ea. KIT Active [id number] 2023 1 Pharmac y Data Transac tion Service Facilit y Allergies, Adverse Reactions, Alerts Combined list of allergies from Department of Defense and Veterans Affairs facilities. It does not include entries that were removed or entered in error. Substance Category Reaction Severity Reaction type Status Date Reported Comments Source NO OUTPUT FOR NCID [id number] Drug allergy (disorder) active 11/26/2007 [facility] [place] [facility] ([facility] Immunizations Combined list of available immunizations from the Department of Defense and Veterans Affairs facilities. Immunization Series Date Given Administered By Site Reaction Lot Number CVX Code Drug Intake Assessor Status Comments Source zoster recombinant 2023 () Not Given zoster recombina nt DoD COVID-19, mRNA, LNP-S, PF, 100 mcg or 50 mcg dose 2020 Roque BRADLEY [employer] (MOD) Not Given COVID-19, mRNA, LNP-S, PF, 100 mcg or 50 mcg dose DoD COVID-19, mRNA, LNP-S, PF, 100 mcg or 50 mcg dose 2020 CYNTHIA, Moderna [employer] (MOD) Not Given COVID-19, mRNA, LNP-S, PF, 100 mcg or 50 mcg dose DoD COVID-19, mRNA, LNP-S, PF, 100 mcg or 50 mcg dose 2020 LEUNG, Moderna [employer] (MOD) Not Given COVID-19, mRNA, LNP-S, PF, 100 mcg or 50 mcg dose DoD influenza virus vaccine, live 2010 [id number] [employer] [facility] t ed influenza virus vaccine, live 05/18/11 Given Ambulat ory Pharmac y influenza virus vaccine, live, attenuated, for intranasal use 1 2010 Unknown, Provider [id number] [employer]. (MED) complet ed influenza virus vaccine, live, attenuate d, for intranasa l use DoD influenza virus vaccine, live 2006 [id number] 111 [employer] [facility] t ed influenza virus vaccine, live 07/19/07 Given Ambulat ory Pharmac y influenza virus vaccine, live, attenuated, for intranasal use 1 2006 [id number] 111 [employer]. (MED) complet ed influenza virus vaccine, live, attenuate d, for intranasa l use DoD influenza virus vaccine,split 2005 [id number] 15 sanofi pasteur complet ed influenza virus vaccine,s plit 06/20/06 Given Ambulat ory Pharmac y influenza virus vaccine, split virus (incl. purified surface antigen)-reti red CODE 1 2005 [id number] 15 Sanofi Pasteur ([facility]) complet ed influenza virus vaccine, split virus (incl. purified surface antigen)- retired CODE DoD influenza virus vaccine,split 2004 [id number] 15 sanofi pasteur complet ed influenza virus vaccine,s plit 07/12/05 Given Ambulat ory Pharmac y influenza virus vaccine, split virus (incl. purified surface antigen)-reti red CODE 1 2004 [id number] 15 Sanofi Pasteur ([facility]) complet ed influenza virus vaccine, split virus (incl. purified surface antigen)- retired CODE [facility] typhoid vaccine, parenteral 2004 [id number] 41 sanofi pasteur complet ed typhoid vaccine, parentera l 11/08/04 Given Ambulat ory Pharmac y typhoid vaccine, parenteral, other than acetone-kille d, dried 0 2004 [id number] 41 Sanofi Pasteur ([facility]) complet ed typhoid vaccine, parentera l, other than acetone-k illed, dried DoD influenza virus vaccine, live 2004 [id number] 111 [employer] comple t ed influenza virus vaccine, live 09/19/04 Given Ambulat ory Pharmac y influenza virus vaccine, live, attenuated, for intranasal use 0 2004 [id number] 111 [employer] (MED) complet ed influenza virus vaccine, live, attenuate d, for intranasa l use DoD anthrax vaccine 2003 [id number] 24 [employer] complet ed anthrax vaccine 10/28/03 Given Ambulat ory Pharmac y anthrax vaccine 5 2003 [id number] [facility] ([facility]) complet ed anthrax vaccine DoD influenza virus vaccine, whole virus 2002 [id number] 16 sanofi pasteur complet ed influenza virus vaccine, whole virus 06/12/03 Given Ambulat ory Pharmac y influenza virus vaccine, whole virus 0 2002 [id number] 16 Sanofi Pasteur ([facility]) complet ed influenza virus vaccine, whole virus DoD tetanus-dipht h toxoids (Td) adult/adol 2002 09 complet ed tetanus-d iphth toxoids (Td) adult/ado l 05/07/03 Given Ambulat ory Pharmac y tetanus and diphtheria toxoids, adsorbed, preservative free, for adult use (2 Lf of tetanus toxoid and 2 Lf of diphtheria toxoid) 0 2002 09 Transcribed (TRS) complet ed tetanus and diphtheri a toxoids, adsorbed, preservat marlee free, for adult use (2 Lf of tetanus toxoid and 2 Lf of diphtheri a toxoid) DoD anthrax vaccine 2002 [id number] [employer] complet ed anthrax vaccine 04/28/03 Given Ambulat ory Pharmac y anthrax vaccine 4 2002 [id number] 24 [employer] [facility] [place] ([facility]) complet ed anthrax vaccine DoD anthrax vaccine 2002 [id number] [employer] complet ed anthrax vaccine 10/03/02 Given Ambulat ory Pharmac y anthrax vaccine 3 2002 [id number] 24 [employer] [place] ([facility]) complet ed anthrax vaccine DoD vaccinia (smallpox) vaccine 2002 [id number] [facility] complet ed vaccinia (smallpox ) vaccine 09/18/02 Given Ambulat ory Pharmac y vaccinia (smallpox) vaccine 0 2002 [id number] 75 [facility] ([facility]) complet ed vaccinia (smallpox ) vaccine DoD anthrax vaccine 2002 [id number] [employer] complet ed anthrax vaccine 09/17/02 Given Ambulat ory Pharmac y anthrax vaccine 2 2002 [id number] 24 [employer] [place] ([facility]) complet ed anthrax vaccine DoD anthrax vaccine 2002 [id number] [employer] complet ed anthrax vaccine 09/03/02 Given Ambulat ory Pharmac y anthrax vaccine 1 2002 [id number] 24 [employer] [place] ([facility]) complet ed anthrax vaccine DoD tuberculin purified protein derivative 2002 zzLef t Arm [id number] 96 sanofi pasteur complet ed Patient Tolerance : Negative Ambulat ory Pharmac y meningococcal polysaccharid e (MPSV4) 2002 [id number] 32 sanofi pasteur complet ed meningoco ccal polysacch aride (MPSV4) 08/29/02 Given Ambulat ory Pharmac y meningococcal polysaccharid e vaccine (MPSV4) 0 2002 [id number] 32 Sanofi Pasteur ([facility]) complet ed meningoco ccal polysacch aride vaccine (MPSV4) DoD tuberculin skin test; purified protein derivative solution, intradermal 1 2002 Unknown, Provider [id number] 96 Sanofi Pasteur ([facility]) complet ed tuberculi n skin test; purified protein derivativ e solution, intraderm al DoD typhoid vaccine, parenteral 2002 [id number] 41 sanofi pasteur complet ed typhoid vaccine, parentera l 08/28/02 Given Ambulat ory Pharmac y typhoid vaccine, parenteral, other than acetone-kille d, dried 0 2002 [id number] 41 Sanofi Pasteur ([facility]) complet ed typhoid vaccine, parentera l, other than acetone-k illed, dried DoD influenza virus vaccine, whole virus 2001 [id number] 16 [facility] complet ed influenza virus vaccine, whole virus 06/18/02 Given Ambulat ory Pharmac y influenza virus vaccine, whole virus 0 2001 [id number] 16 [facility] complet ed influenza virus vaccine, whole virus DoD influenza virus vaccine, whole virus 2000 [id number] 16 sanofi pasteur complet ed influenza virus vaccine, whole virus 06/10/01 Given Ambulat ory Pharmac y influenza virus vaccine, whole virus 0 2000 [id number] 16 Sanofi Pasteur ([facility]) complet ed influenza virus vaccine, whole virus DoD tuberculin purified protein derivative 2000 zzLef t Arm [id number] 96 sanofi pasteur complet ed Patient Tolerance : Negative Ambulat ory Pharmac y tuberculin skin test; purified protein derivative solution, intradermal 1 2000 Unknown, Provider [id number] 96 Sanofi Pasteur ([facility]) complet ed tuberculi n skin test; purified protein derivativ e solution, intraderm al DoD tuberculin purified protein derivative 2000 zzLef t Arm [id number] 96 sanofi pasteur complet ed Patient Tolerance : Negative Ambulat ory Pharmac y tuberculin skin test; purified protein derivative solution, intradermal 1 2000 Unknown, Provider [id number] 96 Sanofi Pasteur ([facility]) complet ed tuberculi n skin test; purified protein derivativ e solution, intraderm al DoD typhoid vaccine, parenteral 2000 [id number] 41 [employer] Inc complet ed typhoid vaccine, parentera l 10/31/00 Given Ambulat ory Pharmac y typhoid vaccine, parenteral, other than acetone-kille d, dried 0 2000 [id number] 41 Merck ([facility]) complet ed typhoid vaccine, parentera l, other than acetone-k illed, dried DoD influenza virus vaccine, whole virus 1999 [id number] 16 [facility] complet ed influenza virus vaccine, whole virus 08/10/00 Given Ambulat ory Pharmac y influenza virus vaccine, whole virus 0 1999 [id number] 16 [facility] complet ed influenza virus vaccine, whole virus DoD tuberculin purified protein derivative 1999 zzLef t Arm 96 complet ed Patient Tolerance : Negative Ambulat ory Pharmac y tuberculin skin test; purified protein derivative solution, intradermal 1 1999 Unknown, Provider 96 () complet ed tuberculi n skin test; purified protein derivativ e solution, intraderm al DoD influenza virus vaccine, whole virus 1998 [id number] 16 [facility] complet ed influenza virus vaccine, whole virus 07/25/99 Given Ambulat ory Pharmac y influenza virus vaccine, whole virus 0 1998 [id number] 16 [facility] ([facility]) complet ed influenza virus vaccine, whole virus DoD influenza virus vaccine, whole virus 19970038 [id number] 16 [facility] complet ed influenza virus vaccine, whole virus 06/10/98 Given Ambulat ory Pharmac y influenza virus vaccine, whole virus 0 [id number] 16 [facility] ([facility]) complet ed influenza virus vaccine, whole virus DoD meningococcal polysaccharid e (MPSV4) 1997 32 complet ed meningoco ccal polysacch aride (MPSV4) 11/02/97 Given Ambulat ory Pharmac y meningococcal polysaccharid e vaccine (MPSV4) 0 1997 32 () complet ed meningoco ccal polysacch aride vaccine (MPSV4) DoD influenza virus vaccine, whole virus 1996 16 complet ed influenza virus vaccine, whole virus 07/09/97 Given Ambulat ory Pharmac y tetanus-dipht h toxoids (Td) adult/adol 1996 09 complet ed tetanus-d iphth toxoids (Td) adult/ado l 07/09/97 Given Ambulat ory Pharmac y measles, mumps and rubella virus vaccine 0 1996 03 () Not Given measles, mumps and rubella virus vaccine DoD tetanus and diphtheria toxoids, adsorbed, preservative free, for adult use (2 Lf of tetanus toxoid and 2 Lf of diphtheria toxoid) 0 1996 09 () complet ed tetanus and diphtheri a toxoids, adsorbed, preservat marlee free, for adult use (2 Lf of tetanus toxoid and 2 Lf of diphtheri a toxoid) DoD influenza virus vaccine, whole virus 0 1996 16 () complet ed influenza virus vaccine, whole virus DoD hepatitis A adult vaccine 1996 52 complet ed hepatitis A adult vaccine 02/05/97 Given Ambulat ory Pharmac y yellow fever vaccine 1996 37 complet ed yellow fever vaccine 02/05/97 Given Ambulat ory Pharmac y yellow fever vaccine 0 1996 37 () complet ed yellow fever vaccine DoD hepatitis A vaccine, adult dosage 2 1996 52 () complet ed hepatitis A vaccine, adult dosage DoD hepatitis A adult vaccine 1995 52 complet ed hepatitis A adult vaccine 08/07/96 Given Ambulat ory Pharmac y hepatitis A vaccine, adult dosage 1 1995 52 () complet ed hepatitis A vaccine, adult dosage DoD typhoid vaccine, live, oral 1995 25 complet ed typhoid vaccine, live, oral 09/12/95 Given Ambulat ory Pharmac y typhoid vaccine, live, oral 0 1995 25 () complet ed typhoid vaccine, live, oral DoD hepatitis B adult vaccine 1993 43 complet ed hepatitis B adult vaccine 01/19/94 Given Ambulat ory Pharmac y hepatitis B vaccine, adult dosage 3 1993 43 () complet ed hepatitis B vaccine, adult dosage DoD meningococcal polysaccharid e (MPSV4) 1991 32 complet ed meningoco ccal polysacch aride (MPSV4) 12/24/91 Given Ambulat ory Pharmac y meningococcal polysaccharid e vaccine (MPSV4) 0 1991 32 () complet ed meningoco ccal polysacch aride vaccine (MPSV4) DoD poliovirus vaccine, live, oral 1987 02 complet ed polioviru s vaccine, live, oral 04/11/88 Given Ambulat ory Pharmac y trivalent poliovirus vaccine, live, oral 0 1987 02 () complet ed trivalent polioviru s vaccine, live, oral DoD measles, mumps and rubella virus vaccine 0 1987 03 () Not Given measles, mumps and rubella virus vaccine DoD tetanus-dipht h toxoids (Td) adult/adol 1986 09 complet ed tetanus-d iphth toxoids (Td) adult/ado l 02/01/87 Given Ambulat ory Pharmac y tetanus and diphtheria toxoids, adsorbed, preservative free, for adult use (2 Lf of tetanus toxoid and 2 Lf of diphtheria toxoid) 0 1986 09 () complet ed tetanus and diphtheri a toxoids, adsorbed, preservat marlee free, for adult use (2 Lf of tetanus toxoid and 2 Lf of diphtheri a toxoid) [facility] Vital Signs Combined list of inpatient and outpatient Vital Signs from Department of Defense and Veterans Affairs, ranging from 12 months to all on record, depending upon the facility. Vital Sign Value Date Comments Source No data available for this section Ambulatory Pharmacy Encounters Combined list of: 1) Encounters from Department of Veterans Affairs facilities going back up to thelast 18 months. 2) Encounters from the Department of Defense facilities going back up to 280 months. Location Location Details Encounter Type Encounter Number Reason For Visit Attending Provider ADM Date DC Date Status Disposition Source [address] [place] [address] [facility] Practice Non-GME FHI1) OUTPATIENT [id number] RT SHOULDE R PAIN/LO SS OF EVER COLLINS 12/13 Released w/o Limitations [address] [place] [address] [place] B [facility]F amily Practic e Non-GME FHI1) [address] [place] [address] [place] [facility]Pt [facility]) OUTPATIENT [id number] joint pain, localiz ed in the shoulde r ZACH SCHOFIELD 01/07 Released w/o Limitations [address] [place] [address] [place] [facility]) [address] [place] [address] [place] [facility]AY[facility]AN[facility] Practice Non-GME FHI1) OUTPATIENT [id number] left ear pain,pl ugged feeling AMAURI SIFUENTES 12/29 Released w/o Limitations [address] [place] [address] [place] [facility]F amily Practic e Non-GME FHI1) [address] [place] [address] [place] B [facility] Practice Non-GME FHI2) OUTPATIENT [id number] PHA KATE CHAMORRO 01/11 Released w/o Limitations [address] [place] [address] [place] [facility]F amily Practic e Non-GME FHI2) [address] [place] [address] [place] B [facility] jed Practice Non-GME FHI2) OUTPATIENT [id number] LEFT EAR PLUGGED KATE CHAMORRO 01/24 Released w/o Limitations [employer] [place] [facility] [place]F amily Practic e Non-GME FHI2) [facility] [place]) OUTPATIENT [id number] cve BARRON DANIEL 03/05 Released w/o Limitations [facility] [place]) [facility] [place]) OUTPATIENT [id number] KISHA ISIDRA [place] 09/19 Released w/o Limitations [facility] [place]) [facility] [place]) OUTPATIENT [id number] BACK PAIN MAURO BAKER A 03/04 Released w/o Limitations [facility] [place]) [facility] [place]) OUTPATIENT [id number] routine BARRON DANIEL 05/31 Released w/o Limitations [facility] [place]) [facility] [place]) OUTPATIENT [id number] back pain NADIRA JOSÉ MIGUEL M 05/31 Released w/o Limitations [facility] [place]) [facility] [place]) OUTPATIENT [id number] BACK SORE X 3 MOS NHAN MENA L 06/04 Released w/o Limitations [facility] [place]) [facility](Phy sical Therapy [place]) OUTPATIENT [id number] lumbago ELI RESTREPO L 06/11 Released w/o Limitations [facility](P [facility]ys[facility] [place]) [facility](Phy [facility]ical [facility] [place]) OUTPATIENT [id number] back BAREMAYRA PATE 06/27 Released w/o Limitations [facility](P [facility] [place]) [facility](Phy sical [facility] [place]) OUTPATIENT [id number] back ANGELIC BO 07/03 Released w/o Limitations [facility](P [facility] [place]) [facility](Phy [facility]ical [facility] [place]) OUTPATIENT [id number] [facility] ANGELIC BO 07/08 Released w/o Limitations [facility](P [facility] [place]) [facility](Phy sical Therapy [place]) OUTPATIENT [id number] [facility] ANGELIC BO [place] 07/22 Released w/o Limitations [facility](P [facility] [place]) [facility](Phy [facility]ical [facility] [place]) OUTPATIENT [id number] [facility] ANGELIC BO [place] 08/02 Released w/o Limitations [facility](P [facility]ical [facility] [place]) [facility] [place]) OUTPATIENT [id number] CC: SEPARAT ION/RET IREMENT TAYLER YANES 11/17 Released w/o Limitations [facility] [place]) [facility](Pre ventive Health Assessmen t) OUTPATIENT [id number] MAUREEN Palomo I 12/02 Released w/o Limitations [facility](P reventi ve Health Assessm ent) Procedures Combined list of: 1) Procedures from Department of Veterans Affairs facilities going back up to thelast 18 months, not all VA non-surgical procedures are included; 2) All procedures from the Department of Defense facilities. Procedure Procedure Type Code Date Perfomer Comments Sourc e No data available for this section Ambulato ry Pharmacy SPLINT 003 [facility] TYPHOID VACCINE, CAPSULAR POLYSACCHARIDE (VICPS), FOR INTRAMUSCULAR USE 003 DoD DETERMINATION OF REFRACTIVE STATE 004 DoD THERAPEUTIC PROCEDURE, 1 OR MORE AREAS, EACH 15 MINUTES; THERAPEUTIC EXERCISES TO DEVELOP STRENGTH AND ENDURANCE, RANGE OF MOTION AND FLEXIBILITY 007 [facility] THERAPEUTIC PROCEDURE, 1 OR MORE AREAS, EACH 15 MINUTES; THERAPEUTIC EXERCISES TO DEVELOP STRENGTH AND ENDURANCE, RANGE OF MOTION AND FLEXIBILITY 007 [facility] THERAPEUTIC PROCEDURE, 1 OR MORE AREAS, EACH 15 MINUTES; THERAPEUTIC EXERCISES TO DEVELOP STRENGTH AND ENDURANCE, RANGE OF MOTION AND FLEXIBILITY [facility] THERAPEUTIC PROCEDURE, 1 OR MORE AREAS, EACH 15 MINUTES; THERAPEUTIC EXERCISES TO DEVELOP STRENGTH AND ENDURANCE, RANGE OF MOTION AND FLEXIBILITY [facility] THERAPEUTIC PROCEDURE, 1 OR MORE AREAS, EACH 15 MINUTES; THERAPEUTIC EXERCISES TO DEVELOP STRENGTH AND ENDURANCE, RANGE OF MOTION AND FLEXIBILITY [facility] THERAPEUTIC PROCEDURE, 1 OR MORE AREAS, EACH 15 MINUTES; THERAPEUTIC EXERCISES TO DEVELOP STRENGTH AND ENDURANCE, RANGE OF MOTION AND FLEXIBILITY [facility] FITTING OF SPECTACLES, EXCEPT FOR APHAKIA; BIFOCAL [facility] FUNDUS PHOTOGRAPHY WITH INTERPRETATION AND REPORT [facility] Physical Therapy: ___ Se ion Segments, 15 Minutes Each Physical Therapy: ___ Session Segments, 15 Minutes Each [id number] ANGELIC BO [facility] Physical Therapy: ___ Se ion Segments, 15 Minutes Each Physical Therapy: ___ Session Segments, 15 Minutes Each [id number] ANGELIC BO [facility] Physical Therapy: ___ Se ion Segments, 15 Minutes Each Physical Therapy: ___ Session Segments, 15 Minutes Each [id number] ANGELIC CLOUD [facility] Physical Therapy: ___ Se ion Segments, 15 Minutes Each Physical Therapy: ___ Session Segments, 15 Minutes Each [id number] ANGELIC BO [facility] Physical Therapy: ___ Se ion Segments, 15 Minutes Each Physical Therapy: ___ Session Segments, 15 Minutes Each [id number] MAYRA CIFUENTES [facility] Physical Therapy: ___ Se ion Segments, 15 Minutes Each Physical Therapy: ___ Session Segments, 15 Minutes Each [id number] ELI RESTREPO [facility] Physical Therapy Service Evaluation Physical Therapy Service Evaluation [id number] ELI RESTREPO [facility] Spectacles Services Fitting Bifocal Except For Aphakia Spectacles Services Fitting Bifocal Except For Aphakia [id number] [place] Determination Of Refractive State Determination Of Refractive State [id number] [place] Ophthalmological Prior Patient Start Comprehensive Care Ophthalmological Prior Patient Start Comprehensive Care [id number] [place] [facility] Ophthalmological New Patient Start Comprehensive Care Ophthalmological New Patient Start Comprehensive Care [id number] [place] Determination Of Refractive State Determination Of Refractive State [id number] [place] Fundus Photography Fundus Photography [id number] 06/10 [place] Spectacles Services Fitting Monofocal Except For Aphakia Spectacles Services Fitting Monofocal Except For Aphakia [id number] [place] Social History Combined list of available smoking, tobacco, and other social history from [facility] of Defense and [facility] facilities. Social History Type Response Date Comment Sourc e Sexual Orientation Ambula tory Pharmacy Gender identity Ambulator y Pharmacy Male Ambulatory Pha rmacy This section is an empty soc ial history section. [facility] Assessment and Plan Combined list of future care activities from Department of Defense and Veterans Affairs facilities (e.g., assessment and plan notes, appointments, orders, and referrals). Additional future care activities may be listed in the Plan of Care section. Result Assessment and Plan Date Source Assessment and Plan No data available for this section 09/18/2024 Ambulatory Pharmacy Functional Status Combined list of recent functional and cognitive assessments recorded at [facility] and [facility] ([facility] Functional [place] Measurement (FIM) Scale: 1 = Total Assistance (Subject = 0% +), 2 = Maximal Assistance (Subject = 25% +), 3 = Moderate Assistance (Subject = 50% +), 4 = Minimal Assistance (Subject = 75% +), 5 = Supervision, 6 = Modified [place] (Device), 7 = Complete [place] (Timely, Safely). Assessment Date/Time Source Assessment Type Assessment Skill Assessment Score Assessment Details No data available for this section
--- OUTSIDE RECORDS SUMMARY | 2024-09-18 11:29 | XMS_ITS | Clinical Summary ---
Author Organization [facility] Address [address] [place] [address]. [place] [address] [place] [address] Care Team Providers Care Decorating Consultant Name Role Phone Devante Justice MD Primary Care Provider [phone] Allergies Active Allergy Reactions Criticality Noted Date Comments Gluten Meal GI Upset 10/24/2017 Gluten intolerance CAUSES BLISTERS ON BODY Medications multiple vitamins-minera ls (OCUVITE-LUTEIN ) Cap Take 1 capsule by mouth daily. Active Cholecalciferol (VITAMIN D) 1000 UNIT tablet Take 2,000 Units by mouth daily. Active tamsulosin 0.4 MG Cap Take 0.4 mg by mouth daily. Active HYDROcodone-eleuterio taminophen 5-325 MG tabletIndicatio ns:Acute Pain < 7 Day Supply Take 1-2 tablets by mouth every 6 (six) hours as needed for Pain. Indications: Acute Pain < 7 Day Supply 20 tablet 05/13/2020 Active dapsone 25 MG tablet Take 50 mg by mouth daily. 04/16/2020 Active fluticasone furoate 27.5 MCG/SPRAY Suspension 1 spray by Each Nostril route daily as needed. Active potassium citrate CR (UROCIT-K 10) 10 MEQ (1080 MG) tabletIndicatio ns:Nephrolithia sis Take 1 tablet (10 mEq total) by mouth 2 (two) times daily with meals. 180 tablet 3 12/08/2020 Active Active Problems Problem Noted Date Diagnosed Date Renal colic on right side 03/12/2020 Diverticulitis 10/24/2017 Assessment & Plan (10/24/2017 10:05 PM RUG SETTER AXMINSTER): Acute, stable, confirmed on CT Likely the main source of patients abdominal pain WBC 12.9, afebrile, VS normal S/p 1L NS, levaquin, and flagyl in ED - Continue flagyl 500 mg q8h, levaquin 500 mg daily - tylenol for mild pain, toradol for moderate pain - NPO, consider advancing diet tomorrow - mIVF at 125 cc/hr Intestinal malrotation (CMS/HCC HHS/HCC) 018 Assessment & Plan (10/24/2017 10:04 PM RUG SETTER AXMINSTER): Acute, confirmed on CT, no evidence of volvulus or obstruction Abdominal pain more likely 2/2 diverticulitis VS WNL, lactate WNL, no evidence of acute abdomen on exam - general surgery consulted, appreciate recs 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 Assessment & Plan (10/24/2017 10:03 PM RUG SETTER AXMINSTER): Chronic, controlled - continue dapsone daily Family History Medical History Relation Comments Cancer Brother 1 BRAIN CANCER No Known Problems Brother 2 No Known Problems Brother 3 No Known Problems Brother 4 No Known Problems Brother 5 No Known Problems Daughter Cancer Father Diabetes Father Cancer Mother No Known Problems Son Relation Status Comments Brother 1 Alive Brother 2 Alive Brother 3 Alive Brother 4 Alive Brother 5 Alive Daughter Alive Father Alive Mother Alive Son Alive Social History Tobacco Use Types Packs/Day Years Used Date Smoking Tobacco: Former Electronic Cigarettes Smokeless Tobacco: Current Tobacco Cessation:Ready to Q uit: Yes; Counseling Given: No Comments:just quit 2 weeks Alcohol Use Standard Drinks/Week Comments No 0 (1 standard drink = 0.6 oz pur e alcohol) PHQ-2 Answer Date Recorded PHQ-2 Score - If the patient scores above 3, please move on to questions 3-9 0 12/08/2020 Sex and Gender Information Value Date Recorded Sex Assigned at Not on file Legal Sex Male 7:31 PM CDT Gender Identity Not on file Sexual Orientation Not on file Last Filed Vital Signs Vital Sign Reading Time Taken Comments Blood Pressure 121/81 02/10/2024 10:40 AM CDT Pulse 86 02/10/2024 10:40 AM CDT Temperature 36.5 ??C (97.7 ??F) 02/10/2024 8:55 AM CD T Respiratory Rate 18 02/10/2024 8:55 AM CDT Oxygen Saturation 95% 02/10/2024 10:40 AM CDT Inhaled Oxygen Concentration - - Weight 86.2 kg (190 lb) 02/10/2024 8:55 AM CDT Height 170.2 cm (5' 7 ) 02/10/2024 8:55 AM CDT Body Mass Index 29.76 02/10/2024 8:55 AM CDT Plan of Treatment Health Maintenance Due Date Last Done Comments Colorectal Cancer Screening Colonoscopy (10 Years) 1964 Annual Physical 1967 Hepatitis C 1982 DTaP, Tdap and Td Vaccines ( 1 - Tdap) 1983 Zoster Vaccines (2 of 2) 12/05/2023 10/10/2023 COVID-19 Vaccine (3 - 2023-2 5 season) 2024 07/16/2021, 06/03/2021 Influenza Adult (#1) 2024 RSV Immunization or 60+ Years (1 - 1-dose 75+ series) 2039 Meningococcal B Vaccine Aged Out No l onger eligible based on patient's age to complete this topic Meningococcal Vaccine Aged Out No nigel cinthia eligible based on patient's age to complete this topic Pneumococcal Vaccine: Pediatrics (0 to 5 Years) and At-Risk Patients (6 to 64 Years) Aged Out No longer eligible b ased on patient's age to complete this topic RSV Immunizations Under 20 Months Aged Out No longer eligible b ased on patient's age to complete this topic Medical Devices Implanted Type Area Electromechanical Assembly Technician Device Identifier Shelf Expiration Date Model / Serial / Lot Stent [employer] [place] 6fr X 26cm - [id number] Implanted:Qty: 1 on 05/18/2020 by Олег Vivas MD at [facility] Right: [employer] 10/09/2024 [id number] / / [id number] Insurance Advance Directives * Full Code (Latest Code Status on File) Date Activated Date Inactivated Comments 03/12/2020 10:36 AM 03/13/2020 3:45 PM * Full Code Date Activated Date Inactivated Comments 10/24/2017 10:45 PM 10/25/2017 2:48 PM * Full Code Date Activated Date Inactivated Comments 10/24/2017 10:08 PM 10/24/2017 10:45 PM Care Teams Decorating Consultant Relationship Specialty Start Date End Date Devante Justice MD [address] [place] [address] PCP - General FAMILY PRACTICE 10/24/17
--- OUTSIDE RECORDS SUMMARY | 2024-09-18 11:29 | XMS_ITS | Encounter Summary ---
Author Organization [facility] Address [address] [place] [address]. [place] [address] [place] [address] Care Team Providers Care Airport Operations Officer Name Role Phone Devante Justice MD Primary Care Provider [phone] Encounter Details Date Type Department Care Team (Late st Contact Info) Description 05/15/2020 Prep for Procedure [facility] Pre-Admission Testing [address] [facility] [address] Олег Vivas MD [address] [place] [address] SUSANNAH ARCHIBALD [address] Social History Tobacco Use Types Packs/Day Years Used Date Smoking Tobacco: Every Day Electronic Cigarettes Smokeless Tobacco: Current Alcohol Use Standard Drinks/Week Comments No 0 (1 standard drink = 0.6 oz pur e alcohol) Sex and Gender Information Value Date Recorded Sex Assigned at Not on file Legal Sex Male 7:31 PM CDT Gender Identity Not on file Sexual Orientation Not on file COVID-19 Exposure Response Date Recorded In the last month, have you been in contact with someone who was confirmed or suspected to have Coronavirus / COVID-19? No / Unsure 05/18/2020 1:03 PM CDT documented as of this encounter Functional Status * RETIRED Are you deaf or do you have serious difficulty hearing Answer Date of Assessment Author Status No 03/12/2020 11:57 AM CDT Acti ve * RETIRED Are you blind or do you have serious difficulty seeing, even when wearing glasses? Answer Date of Assessment Author Status No 03/12/2020 11:57 AM CDT Acti ve * Do you have serious difficulty walking or climbing stairs? Answer Date of Assessment Author Status No 03/12/2020 11:57 AM CDT Shanelle Mccoy RN Active * Do you have difficulty dressing or bathing? Answer Date of Assessment Author Status No 03/12/2020 11:57 AM CDT Shanelle Mccoy RN Active * Because of a physical, mental, or emotional condition, do you have difficulty doing errands alone such as visiting a doctor's office or shopping? Answer Date of Assessment Author Status No 03/12/2020 11:57 AM CDT Shanelle Mccoy RN Active documented as of this encounter Mental Status * Because of a physical, mental, or emotional condition, do you have serious difficulty concentrating, remembering, or making decisions? Answer Entry Date Author Status No 03/12/2020 11:57 AM CDT Shanelle Mccoy RN Active documented in this encounter Plan of Treatment Not on file documented as of this encounter Results * PRE-SURGICAL/PRE-PROCEDURE CORONAVIRUS (COVID 19) (05/15/2020 9:36 AM CDT) Pathologist [facility] CORONAVIRUS SARS COV 2 PCR (RESP) NOT DETECTED NOT DETECTED 05/16/2020 4:40 PM CDT [email or web address] Comment: A Not Detected (negative) test result for this test means that SARS- CoV-2 RNA was not present in the specimen above the limit of detection. A negative result does not rule out the possibility of COVID-19 and should not be used as the sole basis for treatment or patient management decisions. ??If COVID-19 is still suspected, based on exposure history together with other clinical findings, re-testing should be considered in consultation with public health authorities. Laboratory test results should always be considered in the context of clinical observations and epidemiological data in making a final diagnosis and patient management decisions. Please review the Fact Sheets and FDA authorized labeling available for health care providers and patients using the following websites: [email or web address]-[email or web address]/ fact-[email or web address] This test has been authorized by the FDA under an Emergency Use Authorization (EUA) for use by authorized laboratories. Due to the current public health emergency, [facility] is receiving a high volume of samples from a wide variety of swabs and media for COVID-19 testing. In order to serve patients during this public health crisis, samples from appropriate clinical sources are being tested. Negative test results derived from specimens received in non-commercially manufactured viral collection and transport media, or in media and sample collection kits not yet authorized by FDA for COVID-19 testing should be cautiously evaluated and the patient potentially subjected to extra precautions such as additional clinical monitoring, including collection of an additional specimen. Methodology: ??Nucleic Acid Amplification Test (NAAT) includes PCR or TMA Additional information about COVID-19 can be found at the [facility] website: [email or web address]. Test performed at [email or web address] [address] [place], [place] ??[id number] Director: OLIVIA REAGAN DO,MPH FIRST TEST YES 05/15/2020 10:49 AM CDT [facility] EMPLOYED IN HEALTHCARE NO 05/15/2020 10:49 AM CDT [facility] SYMPTOMATIC DEFINED BY CDC NO 05/15/2020 10:49 AM CDT [facility] DATE OF SYMPTOM ONSET NO 05/15/2020 10:50 AM CDT [facility] HOSPITALIZATION STATUS NO 05/15/2020 10:49 AM CDT [facility] PATIENT IN ICU NO 05/15/2020 10:49 AM CDT [facility] RESIDENT OF [facility] NO 05/15/2020 10:49 AM CDT [facility] NOT 05/15/2020 10:50 AM CDT [facility] PATIENT'S RACE WHITE OR 05/15/2020 10:49 AM CDT [facility] ETHNICITY NONHISPANIC 05/15/2020 10:49 AM CDT [facility] SOURCE (QST) NASOPHARYNGEAL SWAB 05/15/2020 10:49 AM CDT [facility] NASOPHARYNGEAL SWAB / Unknown 05/15/2020 9:36 AM CDT us Олег Vivas MD MICROBIOLOGY - GENERAL ORDERAB LES Final Result [facility] [address] [place] [address], [email or web address] [address] [place] [address], documented in this encounter Visit Diagnoses Diagnosis Preoperative testing- Primary Preoperative examination, unspecified documented in this encounter Additional Health Concerns Infection Onset Date Last Indicated Resolved Time COVID-19 Rule Out 05/15/2020 05/15/2020 05/16/2020 4:40 PM CDT documented as of this encounter Care Teams Airport Operations Officer Relationship Specialty Start Date End Date Devante Justice MD [address] [place] [address] PCP - General FAMILY PRACTICE 10/24/17 documented as of this encounter
[2024-09-18 11:35] LABS: Influenza A QL RT-PCR Positive (Negative); Influenza B QL RT-PCR Negative (Negative); RSV RNA, RT-PCR Negative (Negative); SARS-CoV-2 RNA PCR Negative (Negative)
== END 2024-09-18 10:44 | disposition home or self-care (01) ==
PROVIDERS: PCP Family Medicine; Visit Provider Family Medicine
DX: R05.9 Cough, unspecified (principal); Z20.822 Contact with and (suspected) exposure to COVID-19
CPT/HCPCS: 87637

== ENCOUNTER 2025-04-16 06:39 | Outpatient (CLI) | payer OTHER, SELFPAY ==
--- OUTSIDE RECORDS SUMMARY | 2025-04-16 06:42 | XMS_ITS | Continuity of Care Document ---
Author Name [facility] Organization [facility] Care Team Providers Care Supervisor Cytology Name Role Phone [facility] Unavailable Unavailable Problems Combined list of problems from Department of Defense and Veterans Affairs facilities. It does not include entries that were removed or entered in error. Problem Status Onset Date Problem Type Date of Resolution Comments Source visit for: services physical Active Condition DoD ALLERGIC RHINITIS Active Condition ex plained proper use of Flonase. pt can cont Claritin. pt should f/u if not improving. DoD visit for: services physical usp Active Condition cleared for usp. DoD lower back pain Active Condition DoD BACK STRAIN LUMBAR Active Condition p t to cont meds as directed. Instructions on use of ice/heat/stretc h. rtc if sxs worse/no better. 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 DoD ATYPICAL CHEST PAIN Active Condition No recent chest pain.Normal EKG. Because of Fam hx, will get stress test. 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 Pt to schedule appt. for any conerns/issues. DoD UPPER RESPIRATORY INFECTION Inactive Condition DoD SHOULDER STRAIN Inactive Condition DoD Other Physical Therapy Active Condition DoD joint pain, localized in the shoulder Active Condition SUBJECTIVE WEAKNESS, BUT NOT SUPPORTED ON EXAM. WILL GO WITH PLAIN FILMS AND PT CONSULT. MAY CONSIDER MRI/ORTHO PENDING COURSE. ALSO WILL GO WITH TRIAL OF NSAID. [facility] Allergies, Adverse Reactions, Alerts Combined list of allergies from Department of Defense and Veterans Affairs facilities. It does not include entries that were removed or entered in error. Substance Category Reaction Severity Reaction type Status Date Reported Comments Source NO OUTPUT FOR [facility] [id number] Drug allergy (disorder) active 11/26/2007 [facility] [place] GAYTANB ([facility]) Immunizations Combined list of available immunizations from the Department of Defense and Veterans Affairs facilities. Immunization Series Date Given Administered By Site Reaction Lot Number CVX Code Drug Outreach Analyst Status Comments Source zoster recombinant 2023 () Not Given zoster recombina nt DoD COVID Vaccine Moderna 2020 JOSHUARWASHIN GTON 207 complet ed Result Comment: Unit: Unknown Manufactu rer: Moderna US, Inc. (MOD) [address] [place] [address] COVID-19, mRNA, LNP-S, PF, 100 mcg or 50 mcg dose 2020 KIRK, Moderna [employer] Inc. (MOD) Not Given COVID-19, mRNA, LNP-S, PF, 100 mcg or 50 mcg dose DoD COVID Vaccine Moderna 2020 JOSHUARWASHIN GTON 207 complet ed Result Comment: Unit: Unknown Manufactu rer: Moderna US, [employer]. (MOD) [address] [place] [address] [place] COVID-19, mRNA, LNP-S, PF, 100 mcg or 50 mcg dose 2020 CYNTHIA Moderna US[employer] Inc. (MOD) Not Given COVID-19, mRNA, LNP-S, PF, 100 mcg or 50 mcg dose DoD COVID Vaccine Moderna 2020 JOSHUARWASHIN GTON 207 complet ed Result Comment: Unit: Unknown Manufactu rer: Moderna US, Inc. (MOD) [facility] [facility] [place] COVID-19, mRNA, LNP-S, PF, 100 mcg or 50 mcg dose 2020 MADHU, Moderna US[employer] Inc. (MOD) Not Given COVID-19, mRNA, LNP-S, PF, 100 mcg or 50 mcg dose [facility] influenza, seasonal, injectable 2011 YE GTON 141 complet ed Result Comment: Route: Unknown - [facility] [place] tetanus, diphtheria, acellular pertu is 2011 YE GTON 115 complet ed Result Comment: Route: Unknown 5A-3 [facility] [place] influenza virus vaccine, live 2010 [id number] 111 [employer] [facility] t ed influenza virus vaccine, live 05/18/11 Given Ambulat ory Pharmac y influenza virus vaccine, live, attenuated, for intranasal use 1 2010 Unknown, Provider [id number] 111 [employer], [employer] ([facility]) complet ed influenza virus vaccine, live, attenuate d, for intranasa l use [facility] influenza virus vaccine, live 2006 [id number] 111 [employer] [facility] t ed influenza virus vaccine, live 07/19/07 Given Ambulat ory Pharmac y influenza virus vaccine, live, attenuated, for intranasal use 1 2006 [id number] 111 Postabon, Inc. (MED) complet ed influenza virus vaccine, live, attenuate d, for intranasa l use [facility] influenza virus vaccine,split 2005 [id number] sanofi pasteur complet ed influenza virus vaccine,s plit 06/20/06 Given Ambulat ory Pharmac y influenza virus vaccine, split virus (incl. purified surface antigen)-reti red CODE 1 2005 [id number] 15 Sanofi Pasteur ([facility]) complet ed influenza virus vaccine, split virus (incl. purified surface antigen)- retired CODE [facility] influenza virus vaccine,split 2004 [id number] 15 sanofi pasteur complet ed influenza virus vaccine,s plit 07/12/05 Given Ambulat ory Pharmac y influenza virus vaccine, split virus (incl. purified surface antigen)-reti red CODE 1 2004 [id number] 15 Sanofi Pasteur ([facility]) complet ed influenza virus vaccine, split virus (incl. purified surface antigen)- retired CODE [facility] typhoid vaccine, inactivated 2004 [id number] sanofi pasteur complet ed typhoid vaccine, inactivat ed 11/08/04 Given Ambulat ory Pharmac y typhoid vaccine, parenteral, other than acetone-kille d, dried 0 2004 [id number] 41 Sanofi Pasteur ([facility]) complet ed typhoid vaccine, parentera l, other than acetone-k illed, dried DoD influenza virus vaccine, live 2004 [id number] 111 [employer] [facility] t ed influenza virus vaccine, live 09/19/04 Given Ambulat ory Pharmac y influenza virus vaccine, live, attenuated, for intranasal use 0 2004 [id number] 111 Postabon, [employer]. (MED) complet ed influenza virus vaccine, live, attenuate d, for intranasa l use DoD anthrax vaccine 2003 [id number] [employer] complet ed anthrax vaccine 10/28/03 Given Ambulat ory Pharmac y anthrax vaccine 5 2003 [id number] [facility] complet ed anthrax vaccine DoD influenza virus vaccine, whole virus 2002 [id number] 16 sanofi pasteur complet ed influenza virus vaccine, whole virus 06/12/03 Given Ambulat ory Pharmac y influenza virus vaccine, whole virus 0 2002 [id number] 16 Sanofi Pasteur ([facility]) complet ed influenza [...] diphtheri a toxoid) DoD anthrax vaccine 2002 [id number] 24 [employer] complet ed anthrax vaccine 04/28/03 Given Ambulat ory Pharmac y anthrax vaccine 4 2002 [id number] [facility] complet ed anthrax vaccine DoD anthrax vaccine 2002 [id number] 24 [employer] complet ed anthrax vaccine 10/03/02 Given Ambulat ory Pharmac y anthrax vaccine 3 2002 [id number] 24 [employer] [place] ([facility]) complet ed anthrax vaccine DoD vaccinia (smallpox) vaccine 2002 [id number] [facility] complet ed vaccinia (smallpox ) vaccine 09/18/02 Given Ambulat ory Pharmac y vaccinia (smallpox) vaccine 0 2002 [id number] 75 [facility] ([facility]) complet ed vaccinia (smallpox ) vaccine DoD anthrax vaccine 2002 [id number] 24 [employer] complet ed anthrax vaccine 09/17/02 Given Ambulat ory Pharmac y anthrax vaccine 2 2002 [id number] 24 [employer] [place] ([facility]) complet ed anthrax vaccine DoD anthrax vaccine 2002 [id number] 24 [employer] complet ed anthrax vaccine 09/03/02 Given Ambulat ory Pharmac y anthrax vaccine 1 2002 [id number] 24 [employer] [place] ([facility]) complet ed anthrax vaccine DoD tuberculin purified protein derivative 2002 zzLef t Arm [id number] 96 sanofi pasteur complet ed Patient Tolerance : Negative Ambulat ory Pharmac y meningococcal polysaccharid e (MPSV4) 2002 [id number] 32 sanofi pasteur complet ed meningoco ccal polysacch aride (MPSV4) 08/29/02 Given Ambulat ory Pharmac y meningococcal polysaccharid e vaccine (MPSV4) 0 2002 [id number] 32 Sanofi Pasteur ([facility]) complet ed meningoco ccal polysacch aride vaccine (MPSV4) DoD tuberculin skin test; purified protein derivative solution, intradermal 1 2002 Unknown, Provider [id number] 96 Sanofi Pasteur ([facility]) complet ed tuberculi n skin test; purified protein derivativ e solution, intraderm al DoD typhoid vaccine, inactivated 2002 [id number] sanofi pasteur complet ed typhoid vaccine, inactivat ed 08/28/02 Given Ambulat ory Pharmac y typhoid vaccine, parenteral, other than acetone-kille d, dried 0 2002 [id number] 41 Sanofi Pasteur ([facility]) complet ed typhoid vaccine, parentera l, other than acetone-k illed, dried DoD influenza virus vaccine, whole virus 2001 [id number] 16 [employer] [facility] complet ed influenza virus vaccine, whole virus 06/18/02 Given Ambulat ory Pharmac y influenza virus vaccine, whole virus 0 2001 [id number] 16 [facility] ([facility]) complet ed influenza virus vaccine, whole virus DoD influenza virus vaccine, whole virus 2000 [id number] 16 sanofi pasteur complet ed influenza virus vaccine, whole virus 06/10/01 Given Ambulat ory Pharmac y influenza virus vaccine, whole virus 0 2000 [id number] 16 Sanofi Pasteur ([facility]) complet ed influenza virus vaccine, whole virus DoD tuberculin purified protein derivative 2000 zzLef t Arm [id number] 96 sanofi pasteur complet ed Patient Tolerance : Negative Ambulat ory Pharmac y tuberculin skin test; purified protein derivative solution, intradermal 1 2000 Unknown, Provider [id number] 96 Sanofi Pasteur ([facility]) complet ed tuberculi n skin test; purified protein derivativ e solution, intraderm al DoD tuberculin purified protein derivative 2000 zzLef t Arm [id number] 96 sanofi pasteur complet ed Patient Tolerance : Negative Ambulat ory Pharmac y tuberculin skin test; purified protein derivative solution, intradermal 1 2000 Unknown, Provider [id number] 96 Sanofi Pasteur ([facility]) complet ed tuberculi n skin test; purified protein derivativ e solution, intraderm al DoD typhoid vaccine, inactivated 2000 [id number] 101 [employer] Inc complet ed typhoid vaccine, inactivat ed 10/31/00 Given Ambulat ory Pharmac y typhoid vaccine, parenteral, other than acetone-kille d, dried 0 2000 [id number] 41 Merck ([facility]) complet ed typhoid vaccine, parentera l, other than acetone-k illed, dried DoD influenza virus vaccine, whole virus 1999 [id number] 16 [employer] complet ed influenza virus vaccine, whole virus 08/10/00 Given Ambulat ory Pharmac y influenza virus vaccine, whole virus 0 1999 [id number] 16 [facility] complet ed influenza virus vaccine, whole virus DoD tuberculin purified protein derivative 1999 zzLef t Arm 96 complet ed Patient Tolerance : Negative Ambulat ory Pharmac y tuberculin skin test; purified protein derivative solution, intradermal 1 1999 Unknown, Provider 96 () complet ed tuberculi n skin test; purified protein derivativ e solution, intraderm al DoD influenza virus vaccine, whole virus 1998 [id number] [address] [facility] complet ed influenza virus vaccine, whole virus 07/25/99 Given Ambulat ory Pharmac y influenza virus vaccine, whole virus 0 1998 [id number] 16 [facility] ([facility]) complet ed influenza virus vaccine, whole virus DoD influenza virus vaccine, whole virus [id number] 16 [facility] complet ed influenza virus vaccine, whole virus 06/10/98 Given Ambulat ory Pharmac y influenza virus vaccine, whole virus 0 [id number] 16 [facility] ([facility]) complet ed influenza virus vaccine, whole [...] 2 Lf of diphtheri a toxoid) DoD Encounters Combined list of: 1) Encounters from Department of Veterans Affairs facilities going backup to the last 18 months, not all VA inpatient encounters are included; 2) Encounters from the Department of Defense facilities going backup to 280 months. Location Location Details Encounter Type Encounter Number Reason For Visit Attending Provider ADM Date DC Date Status Disposition Source [address] [place] [address] [place] [facility] Practice Non-GME FHI1) OUTPATIENT [id number] RT SHOULDE R PAIN/LO SS OF EVER COLLINS 12/13 Released w/o Limitations [address] [place] [address] [place] [facility]F amily Practic e Non-GME FHI1) [address] [place] [address] [place] Michael [facility] OUTPATIENT [id number] joint pain, localiz ed in the shoulde r ZACH SCHOFIELD 01/07 Released w/o Limitations [address] [place] [address] [place] [facility] [address] [place] [address] [place] [facility] Practice Non-GME FHI1) OUTPATIENT [id number] left ear pain,pl ugged feeling AMAURI SIFUENTES R 12/29 Released w/o Limitations [address] [place] [address] [place] [facility])(F amily Practic e Non-GME FHI1) [address] [place] [address] [place] [facility] Practice Non-GME FHI2) OUTPATIENT [id number] PHA KATE CHAMORRO 01/11 Released w/o Limitations [address] [place] [address] [place] [facility]F amily Practic e Non-GME FHI2) [address] [place] [address] [place] [facility] jed Practice Non-GME FHI2) OUTPATIENT [id number] LEFT EAR PLUGGED KATE CHAMORRO 01/24 Released w/o Limitations [address] [place] [address] [place] [facility]F amily Practic e Non-GME FHI2) [facility] [place]) OUTPATIENT [id number] cve BARRON DANIEL 03/05 Released w/o Limitations [facility] [place]) [facility] [place]) OUTPATIENT [id number] ISIDRA BEARD Du[place] 09/19 Released w/o Limitations [facility] [place]) [facility] [place]) OUTPATIENT [id number] BACK PAIN , MAURO A 03/04 Released w/o Limitations [facility] [place]) [facility] [place]) OUTPATIENT [id number] routine BARRON DANIEL 05/31 Released w/o Limitations [facility] [place]) [facility] [place]) OUTPATIENT [id number] back pain JOSÉ MIGUEL WADDELL 05/31 Released w/o Limitations [facility] [place]) [facility] [place]) OUTPATIENT [id number] BACK SORE X 3 MOS NHAN MENA L 06/04 Released w/o Limitations [facility] [place]) [facility](Phy sical Therapy [place]) OUTPATIENT [id number] lumbago KAYEELI L 06/11 Released w/o Limitations [facility](P [facility] [place]) [facility]hy [facility] [place]) OUTPATIENT [id number] back BAREFOOT, MAYRA WHITLEY 06/27 Released w/o Limitations [facility](P [facility] [place]) [facility]hy [facility] [place]) OUTPATIENT [id number] ANGELIC Sagastume 07/03 Released w/o Limitations [facility](P [facility] [place]) [facility](Phy sical [facility] [place]) OUTPATIENT [id number] ANGELIC Sagastume 07/08 Released w/o Limitations [facility](P [facility] [place]) [facility](Phy sical [facility] [place]) OUTPATIENT [id number] back ANGELIC BO 07/22 Released w/o Limitations [facility](P [facility] [place]) [facility](Phy [facility]ical [facility] [place]) OUTPATIENT [id number] back ANGELIC BO 08/02 Released w/o Limitations [facility](P [facility] [place]) [facility] [place]) OUTPATIENT [id number] CC: SEPARAT ION/RET IREMENT TAYLER YANES 11/17 Released w/o Limitations [facility] [place]) [facility](Pre ventive Health Assessmen t) OUTPATIENT [id number] MAUREEN Palomo I 12/02 Released w/o Limitations [...] available for this section Ambulato ry Pharmacy Physical Therapy: ___ Se ion Segments, 15 Minutes Each Physical Therapy: ___ Session Segments, 15 Minutes Each [id number] ANGELIC BO Physical Therapy: ___ Se ion Segments, 15 Minutes Each Physical Therapy: ___ Session Segments, 15 Minutes Each [id number] ANGELIC BO Physical Therapy: ___ Se ion Segments, 15 Minutes Each Physical Therapy: ___ Session Segments, 15 Minutes Each [id number] ANGELIC BO Physical Therapy: ___ Se ion Segments, 15 Minutes Each Physical Therapy: ___ Session Segments, 15 Minutes Each [id number] ANGELIC BO Physical Therapy: ___ Se ion Segments, 15 Minutes Each Physical Therapy: ___ Session Segments, 15 Minutes Each [id number] 007 MAYRA CIFUENTES [facility] Physical Therapy: ___ Se ion Segments, 15 Minutes Each Physical Therapy: ___ Session Segments, 15 Minutes Each [id number] KAYE, ELIAMY Cristobal Physical Medicine Physical Therapy Evaluation Physical Medicine Physical Therapy Evaluation [id number] ELI RESTREPO [employer] [facility] Fitting Bifocals (Not For Aphakia) [employer] [facility] Fitting Bifocals (Not For Aphakia) 73101 007 BARRON DANIEL Determination Of Refractive State Determination Of Refractive State 71350 007 BARRON DANIEL Ophthalmological Prior Patient Start Comprehensive Care Ophthalmological Prior Patient Start Comprehensive Care [id number] BARRON DANIEL Ophthalmological New Patient Start Comprehensive Care Ophthalmological New Patient Start Comprehensive Care [id number] BARRON DANIEL Determination Of Refractive State Determination Of Refractive State [phone] BARRON DANIEL Fundus Photography Fundus Photography [id number] 06/10 006 BARRON DANIEL [employer] [facility] Fitting Monofocals (Not For Aphakia) [facility] [facility] Fitting Monofocals (Not For Aphakia) [id number] BARRON DANIEL Social History Combined list of available smoking, tobacco, and other social history from Department of Defense and Veterans Affairs facilities. Social History Type Response Date Comment Sourc e Sexual Orientation Ambula tory Pharmacy Gender identity Ambulator y Pharmacy Sex Representation Male (finding) Un known Organization This section is an empty soc ial history section. DoD Assessment and Plan Combined list of future care activities from Department of Defense and Veterans Affairs facilities (e.g., assessment and plan notes, appointments, orders, and referrals). Additional future care activities may be listed in the Plan of Care section. Result Assessment and Plan Date Source Assessment and Plan No data available for this section 04/16/2025 Ambulatory Pharmacy Functional Status Combined list of recent functional and cognitive assessments recorded at Department of Defense and Veterans Affairs (VA).VA Functional [place] Measurement (FIM) Scale: 1 = Total Assistance (Subject = 0% +), 2 = Maximal Assistance (Subject = 25% +), 3 = Moderate Assistance (Subject = 50% +), 4 = Minimal Assistance (Subject = 75% +), 5 = Supervision, 6 = Modified [place] (Device), 7 = Complete [place] (Timely, Safely). Assessment Date/Time Source Assessment Type Assessment Skill Assessment Score Assessment Details No data available for this section
--- OUTSIDE RECORDS SUMMARY | 2025-04-16 06:43 | XMS_ITS | Clinical Summary ---
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): Acute, stable, confirmed on CT Likely the [...] 018 Assessment & Plan (10/24/2017 10:04 PM CAR STARTER): Acute, confirmed on CT, no evidence of volvulus or obstruction Abdominal pain more likely 2/2 diverticulitis VS WNL, lactate WNL, no evidence of acute abdomen on exam - general surgery consulted, appreciate recs 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 Assessment & Plan (10/24/2017 10:03 PM CAR STARTER): Chronic, controlled - continue dapsone daily Family [...] 86 02/10/2024 10:40 AM CDT Temperature 36.5 C (97.7 F) 02/10/2024 8:55 AM CDT Respiratory Rate 18 02/10/2024 8:55 AM CDT Oxygen Saturation 95% 02/10/2024 10:40 AM CDT Inhaled Oxygen Concentration - - Weight 86.2 kg (190 lb) 02/10/2024 8:55 AM CDT Height 170.2 cm (5' 7) 02/10/2024 8:55 AM CDT Body Mass Index 29.76 02/10/2024 8:55 AM CDT Plan of Treatment Health Maintenance Due Date Last Done Comments Colorectal Cancer Screening Colonoscopy (10 Years) 1964 Annual Physical 1967 Hepatitis C 1982 DTaP, Tdap and Td Vaccines ( 1 - Tdap) 1983 Pneumococcal Vaccine: 50+ Years (1 of 1 - PCV) 2014 Zoster Vaccines (2 of 2) 12/05/2023 10/10/2023 COVID-19 Vaccine (3 - 2023-2 5 season) 2024 07/16/2021, 06/03/2021 RSV Immunization or 60+ Years (1 - [...] this topic Medical Devices Implanted Type Area Spring Forger Device Identifier Shelf Expiration Date Model / Serial / Lot Stent Bard Climax 6fr X 26cm - [id number] Implanted:Qty: 1 on 05/18/2020 by Олег Vivas MD at [facility] Right: [employer] 10/09/2024 [id number] / / [id number] Insurance Advance Directives * Full Code (Latest Code Status on File) Date Activated Date Inactivated Comments 03/12/2020 10:36 AM 03/13/2020 3:45 PM * Full Code Date Activated Date Inactivated Comments 10/24/2017 10:45 PM 10/25/2017 2:48 PM * Full Code Date Activated Date Inactivated Comments 10/24/2017 10:08 PM 10/24/2017 10:45 PM Care Teams Physician Executive Relationship Specialty Start Date End Date Devante Justice MD [address] [place] [address] PCP - General FAMILY PRACTICE 10/24/17
--- OUTSIDE RECORDS SUMMARY | 2025-04-16 06:43 | XMS_ITS | Encounter Summary ---
Author Organization [facility] Address [address] [place] [address] Care Team Providers Care Flying Squad Salesperson Name Role Phone Devante Justice MD Primary Care Provider [phone] Encounter Details Date Type Department Care Team (Late st Contact Info) Description 05/15/2020 Prep for Procedure [facility] Pre-Admission Testing [place] [address] Олег Vivas MD [address] [place] [address] SUSANNAH ARCHIBALD [id number] Social History Tobacco Use Types Packs/Day Years [...] CORONAVIRUS (COVID 19) (05/15/2020 9:36 AM CDT) [facility] CORONAVIRUS SARS COV 2 PCR (RESP) NOT DETECTED NOT DETECTED 05/16/2020 4:40 PM CDT [facility] Comment: A Not Detected (negative) test result for this test means that SARS- CoV-2 RNA was not present in the specimen above the limit of detection. A negative result does not rule out the possibility of COVID-19 and should not be used as the sole basis for treatment or patient management decisions. If COVID-19 is still suspected, based on exposure [...] providers and patients using the following websites: https://www.Schedule Savvy.[employer]/home/Covid-19/HCP/NAAT/fact-sheet2 https://www.Schedule Savvy.[employer]/home/Covid-19/Patients/NAAT/ fact-sheet2 This test has been authorized by the FDA under an Emergency Use Authorization (EUA) for use by authorized laboratories. Due to the current public health emergency, [facility] is receiving a high volume of samples [...] including collection of an additional specimen. Methodology: Nucleic Acid Amplification Test (NAAT) includes PCR or TMA Additional information about COVID-19 can be found at the [facility] website: www.[employer]/Covid19. Test performed at [facility] [address] [place] [address] Director: OLIVIA REAGAN DO,MPH FIRST TEST YES 05/15/2020 10:49 AM CDT [facility] EMPLOYED IN HEALTHCARE NO 05/15/2020 10:49 AM CDT [facility] SYMPTOMATIC DEFINED BY CDC NO 05/15/2020 10:49 AM CDT [facility] DATE OF SYMPTOM ONSET NO 05/15/2020 10:50 AM CDT [facility] HOSPITALIZATION STATUS NO 05/15/2020 10:49 AM CDT [facility] PATIENT IN ICU NO 05/15/2020 10:49 AM CDT [facility] RESIDENT OF [facility] NO 05/15/2020 10:49 AM CDT [facility] NOT 05/15/2020 10:50 AM CDT [facility] PATIENT'S RACE WHITE OR 05/15/2020 10:49 AM CDT [facility] ETHNICITY NONHISPANIC 05/15/2020 10:49 AM T [facility] SOURCE (QST) NASOPHARYNGEAL SWAB 05/15/2020 10:49 AM CDT [facility] NASOPHARYNGEAL SWAB / Unknown 05/15/2020 9:36 AM CDT us Олег Vivas MD MICROBIOLOGY - GENERAL ORDERAB LES Final Result [facility] [address] [place] [address], [facility] [address] [place] [address], documented in this encounter Visit Diagnoses Diagnosis Preoperative testing- Primary Preoperative examination, unspecified documented in this encounter Additional Health Concerns Infection Onset Date Last Indicated Resolved Time COVID-19 Rule Out 05/15/2020 05/15/2020 05/16/2020 4:40 PM CDT documented as of this encounter Care Teams Flying Squad Salesperson Relationship Specialty Start Date End Date Devante Justice MD [address] [place] [address] PCP - General FAMILY PRACTICE 10/24/17 documented as of this encounter
[2025-04-16 07:45] LABS: Hematocrit 44.7 % (42.0-52.0); Hemoglobin 14.3 g/dL (14.0-18.0); Immature Granulocyte Percent A 0.2 % (0-0.5); Lymphocytes Absolute Auto 2.14 K/mm3 (0.9-3.2); Mean Corpuscular HGB Conc 32.0 g/dl (32-36); Mean Corpuscular Hemoglobin 30.4 pg (26-34); Mean Corpuscular Volume 94.9 fl (80-100); Nucleated Red Blood Cells Absolute Auto 0.000 K/mm3 (0.0-0.012); Nucleated Red Blood Cells Perc 0.0 % (0.0-0.2); Platelet Count Result 280 k/mm3 (150-375); Red Blood Count 4.71 M/mm3 (4.6-6.20); White Blood Count 6.5 K/mm3 (4.5-10.0)
[2025-04-16 07:45] LABS: Add Urine Microscopic? NO; Appearance Urine Clear (Clear); Glucose Urine UA Negative (Negative); Leukocyte Esterase Ur Negative LEU/UL (Negative); Nitrate Urine Negative (Negative); Specific Grav Ur 1.021 (1.001-1.035)
[2025-04-16 08:06] LABS: Alanine Aminotransferase 43 U/L (6-50); Albumin Level 4.1 g/dL (3.5-5.1); Alkaline Phosphatase 79 U/L (38-126); Anion Gap 6 mmol/L (4-12); Aspartate Amino Transferase 37 U/L (17-59); Bilirubin,Total 0.8 mg/dL (0.2-1.3); Blood Urea Nitrogen 15 mg/dL (9-20); Calcium 8.8 mg/dL (8.4-10.2); Carbon Dioxide 26 mmol/L (22-30); Chloride 107 mmol/L (98-107); Cholesterol 165 mg/dL (0-200); Estimated Glomerular Filt Rate > 60; Glucose 97 mg/dL (65-110); HDL Direct 29 mg/dL; Potassium 4.9 mmol/L (3.4-5.0); Sodium 139 mmol/L (137-145); Total Protein 7.0 g/dL (6.3-8.2); Triglycerides 135 mg/dL (<150)
[2025-04-16 08:42] LABS: Prostate Specific Antigen 1.0 ng/mL (< OR = 4.0); Thyroid Stimulating Hormone 1.550 uIU/mL (0.465-4.680)
== END 2025-04-16 06:40 | disposition home or self-care (01) ==
LOC: ANHLAB 06:41
PROVIDERS: PCP Family Medicine; Visit Provider Family Medicine
DX: Z00.00 Encounter for general adult medical examination without abnormal findings (principal); E78.5 Hyperlipidemia, unspecified; R35.1 Nocturia; L13.0 Dermatitis herpetiformis
CPT/HCPCS: 36415; 80053; 80061; 81003; 84153; 84443; 85025

== ENCOUNTER 2025-06-01 07:57 | Outpatient (CLI) | payer OTHER, SELFPAY ==
--- NOTE | ~2025-06-01 | CT_ITS ---
EXAMINATION:CT lung screening DATE: 06/01/2025 08:09 INDICATION: Personal history of nicotine dependence. TECHNIQUE: Computed tomography (CT) of the chest was performed without intravenous contrast. Automated exposure control and iterative reconstruction technique were employed. The dose-length product (DLP) was 197.07 mGy-cm. COMPARISON: Chest CT 10/06/2020 FINDINGS: A calcified left lung nodule is consistent with old granulomatous disease. There is no pneumonia or pleural effusion. The heart size is normal. No pericardial effusion. There is mild thoracic spondylosis. IMPRESSION: 1. Lung-RADS category 1: Negative. Continue annual screening with noncontrast low-dose chest CT in 12 months. Reviewed, dictated and finalized at location E. IMPRESSION: 1. Lung-RADS category 1: Negative. Continue annual screening with noncontrast l ow-dose chest CT in 12 months.
--- OUTSIDE RECORDS SUMMARY | 2025-06-01 08:06 | XMS_ITS | Encounter Summary ---
Author Organization [facility] Address [address] [place] [address] Care Team Providers Care Chocolate Temperer Name Role Phone Devante Justice MD Primary Care Provider [phone] Encounter Details Date Type Department Care Team (Late st Contact Info) Description 05/15/2020 Prep for Procedure [facility] Pre-Admission Testing [place] [address] Олег Vivas MD [address] [place] [address] SUSANNAH ARCHIBALD [address] Social History Tobacco Use Types Packs/Day Years [...] CORONAVIRUS (COVID 19) (05/15/2020 9:36 AM CDT) [facility] CORONAVIRUS SARS COV 2 PCR (RESP) NOT DETECTED NOT DETECTED 05/16/2020 4:40 PM CDT [facility] Comment: A Not Detected (negative) test result [...] providers and patients using the following websites: https://www.Camerama.[employer]/home/Covid-19/HCP/NAAT/fact-sheet2 https://www.[employer]/home/Covid-19/Patients/NAAT/ fact-sheet2 This test has been authorized by the FDA under an Emergency Use Authorization (EUA) for use by authorized laboratories. Due to the current public health emergency, [facility] is receiving a high volume of samples [...] about COVID-19 can be found at the [facility] website: www.Easy [employer]po.[employer]/Covid19. Test performed at [facility] [address] [place] [address] Director: OLIVIA REAGAN DO,MPH FIRST TEST YES 05/15/2020 10:49 AM CDT [facility] EMPLOYED IN HEALTHCARE NO 05/15/2020 10:49 AM CDT [facility] SYMPTOMATIC DEFINED BY CDC NO 05/15/2020 10:49 AM CDT [facility] DATE OF SYMPTOM ONSET NO 05/15/2020 10:50 AM CDT [facility] HOSPITALIZATION STATUS NO 05/15/2020 10:49 AM CDT [facility] PATIENT IN ICU NO 05/15/2020 10:49 AM CDT [facility] RESIDENT OF [facility] NO 05/15/2020 10:49 AM CDT [facility] NOT 05/15/2020 10:50 AM CDT [facility] PATIENT'S RACE WHITE OR 05/15/2020 10:49 AM CDT [facility] ETHNICITY NONHISPANIC 05/15/2020 10:49 AM T [facility] SOURCE (QST) NASOPHARYNGEAL SWAB 05/15/2020 10:49 AM CDT [facility] NASOPHARYNGEAL SWAB / Unknown 05/15/2020 9:36 AM CDT us Олег Vivas MD MICROBIOLOGY - GENERAL ORDERAB LES Final Result [facility] [address] [place] [address], [facility] [address] [place] [address], documented in this encounter Visit Diagnoses Diagnosis Preoperative testing- Primary Preoperative examination, unspecified documented in this encounter Additional Health Concerns Infection Onset Date Last Indicated Resolved Time COVID-19 Rule Out 05/15/2020 05/15/2020 05/16/2020 4:40 PM CDT documented as of this encounter Care Teams Chocolate Temperer Relationship Specialty Start Date End Date Devante Justice MD [address] [place] [address] PCP - General FAMILY PRACTICE 10/24/17 documented as of this encounter
--- OUTSIDE RECORDS SUMMARY | 2025-06-01 08:06 | XMS_ITS | Clinical Summary ---
Author Organization [facility] Address [address] [place] [address] Care Team Providers Care Hot Cell Technician Name Role Phone Devante Justice MD Primary Care Provider [phone] Allergies Active Allergy Reactions Criticality Noted Date [...] 10/24/2017 Assessment & Plan (10/24/2017 10:05 PM PHOTOVOLTAIC FABRICATION TECHNICIAN): Acute, stable, confirmed on CT Likely the main source of patients abdominal pain WBC 12.9, afebrile, VS normal S/p 1L NS, levaquin, and flagyl in ED - Continue flagyl 500 mg q8h, levaquin 500 mg daily - tylenol for mild pain, toradol for moderate pain - NPO, consider advancing diet tomorrow - mIVF at 125 cc/hr Intestinal malrotation 10/24/2017 Assessment & Plan (10/24/2017 10:04 PM PHOTOVOLTAIC FABRICATION TECHNICIAN): Acute, confirmed on CT, no evidence of volvulus or obstruction Abdominal pain more likely 2/2 diverticulitis VS WNL, lactate WNL, no evidence of acute abdomen on exam - general surgery consulted, appreciate recs 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 Assessment & Plan (10/24/2017 10:03 PM PHOTOVOLTAIC FABRICATION TECHNICIAN): Chronic, controlled - continue dapsone daily Family [...] 2) 12/05/2023 10/10/2023 COVID-19 Vaccine (3 - 2024-2 6 season) 2025 07/16/2021, 06/03/2021 Influenza Adult (#1) 2025 RSV Immunization or 60+ Years (1 - [...] this topic Medical Devices Implanted Type Area Crew Member Device Identifier Shelf Expiration Date Model / Serial / Lot Stent Bard [place] 6fr X 26cm - [id number] Implanted:Qty: 1 on 05/18/2020 by Олег Vivas MD at [facility] Right: Ureter [employer] 10/09/2024 [id number] / / [id number] Insurance Advance Directives * Full Code (Latest Code Status on File) Date Activated Date Inactivated Comments 03/12/2020 10:36 AM 03/13/2020 3:45 PM * Full Code Date Activated Date Inactivated Comments 10/24/2017 10:45 PM 10/25/2017 2:48 PM * Full Code Date Activated Date Inactivated Comments 10/24/2017 10:08 PM 10/24/2017 10:45 PM Care Teams Hot Cell Technician Relationship Specialty Start Date End Date Devante Justice MD [address] [place] [address] PCP - General FAMILY PRACTICE 10/24/17
== END 2025-06-01 07:58 | disposition home or self-care (01) ==
PROVIDERS: PCP Family Medicine; Visit Provider Family Medicine
DX: Z12.2 Encounter for screening for malignant neoplasm of respiratory organs (principal); Z87.891 Personal history of nicotine dependence
CPT/HCPCS: 71271

== ENCOUNTER 2025-06-10 04:14 | Emergency (ER) | payer OTHER, SELFPAY ==
--- NOTE | ~2025-06-10 | CT_ITS ---
EXAMINATION: CT abdomen pelvis w con DATE: 06/10/2025 05:38 INDICATION: Left lower quadrant abdominal pain. TECHNIQUE: Computed tomography (CT) of the abdomen and pelvis was performed with 100 mL Omnipaque 350 intravenous contrast. Automated exposure control and iterative reconstruction technique were employed. The dose-length product was 1321.07 mGy-cm. COMPARISON: CT abdomen and pelvis 03/08/2024 FINDINGS: The visualized portions of lung bases demonstrate mild atelectasis. No pleural effusion. The heart size is normal. No pericardial effusion. There is 11 mm cyst in the liver. The gallbladder, spleen, pancreas, adrenal glands, and right kidney are normal. There is a 3 mm stone in left kidney. The prostate is mildly enlarged. There is fat stranding around a diverticulum of sigmoid colon, consistent with diverticulitis. There are other scattered diverticula in the colon. The appendix is in the left abdomen and is normal. There are no pathologically enlarged lymph nodes. There is no free intraperitoneal fluid. There is mild thoracic spondylosis and moderate lumbar spondylosis. IMPRESSION: 1. Acute sigmoid diverticulitis. No perforation or abscess. Reviewed, dictated and finalized at location E.
[2025-06-10 04:20] VITALS: BP 151/59; PULSE 98; RESP 14; TEMP 36.8; O2SAT 98
--- NOTE | 2025-06-10 04:25 | ED.ABDPAIN ---
HPI - Abdominal Pain General Chief Complaint: Abdominal Pain Stated Complaint: Severe abdominal pain Time Seen by Provider: 06/10/25 04:17 History of Present Illness HPI narrative: 60-year-old male with a past medical history including inguinal hernia status post robotic repair, history of diverticulosis and kidney stones. Patient presents with left lower quadrant pain that started 2 days ago. Gradually worsening for last 2 days. No other associated symptoms no fever, chills, nausea, vomiting, diarrhea, bloody bowel movements, dysuria, hematuria. No traumatic injuries. No inguinal masses or testicular pain. Was otherwise in his normal state of health. Related Data Home Medications ?Medication ?Instructions ?Recorded ?Confirmed ?Last Taken ?Type dapsone 25 mg tablet 50 mg PO DAILY 09/29/19 04/08/25 05/29/23 09:00 History cetirizine 10 mg capsule (Zyrtec) 10 mg PO DAILY PRN Allergy Symptoms 02/18/24 04/08/25 Unknown History psyllium husk 0.52 gram capsule 0.52 g PO BID 02/28/24 04/08/25 Unknown History (Fiber-Caps (psyllium husk)) Allergies Allergy/AdvReac Type Severity Reaction Status Date / Time citalopram Allergy Unknown Itching Verified 04/08/25 08:53 gluten Allergy Unknown BLISTERS Verified 04/08/25 08:53 Review of Systems Review of Systems: As reviewed [facility]PI [facility] Past Medical History Medical History Nephrolithiasis Surgical History Surgical History History of inguinal hernia repair 03/07/24 Robotic assisted laparoscopic right inguinal hernia repair a Bard 3D mid weight mesh. H/O ureteroscopy right History of lumpectomy right breast removal benign tumor Family History Family History Father Hypertension Malignant neoplasm of prostate Diabetes mellitus Sibling Family history of malignant neoplasm of brain Diabetes mellitus Other Cerebrovascular accident Family history of malignant neoplasm Social History Social History Social History: Smoking packs per day: 1 Smoking cigarettes per day: 20.0 Years smoked: 25 Smoking pack-years: 25.00 Smoking status: Former smoker Tobacco type: cigarettes and e-cigarettes/vaping Second hand tobacco smoke exposure: No Smoking end date: 02/27/09 Additional smoking assessment comments: quit vaping 3 years ago. Alcohol intake: current Alcohol use details: Rarely Substance use: never Substance use type: does not use Do You Feel Safe in your Home?: Yes Lack of Transportation: No Lack of Food: Never True Current Housing: I Have Housing Concerned About Future Housing: No Difficulty Paying Gas/Electric Bills: No Difficulty Paying for Meds: No Currently Unemployed: No Education: Associate Degree Difficulty w/ Childcare or Family Care: No Living arrangements: with family Occupation/Education: occupation Additional occupation/education comments: [employer] Gender identity (if verbalized by the patient): Male Sexual Orientation (if Verbalized by the Patient): Straight or Heterosexual Spiritual care concerns: No Exam Narrative: GENERAL: [Well-appearing, well-nourished, and in no acute distress.] HEAD: [Normocephalic, atraumatic.] EYES: [PERRLA and EOMI.] ENT: Nares clear, no rhinorrhea or epistaxis. Mucous membranes moist. NECK: Supple. CHEST: [Clear to auscultation. No respiratory distress.] HEART: [Regular rate and rhythm]. No murmur heard. [Normal peripheral pulses.] ABDOMEN: Soft and nondistended, tender to palpation left lower quadrant with no rebound or guarding. No CVA tenderness. No inguinal masses palpated. EXTREMITIES: Normal range of motion. [No edema.] SKIN: Warm, dry, no rash. NEURO: [No focal deficits]. Alert and oriented [x3.] PSYCH: [Normal mood and affect.] Course Vital Signs Vital signs: Vital Signs Temperature 36.8 C 06/10/25 04:20 Pulse Rate 98 06/10/25 04:20 Respiratory Rate 14 06/10/25 04:20 Blood Pressure 151/59 H 06/10/25 04:20 Pulse Oximetry 98 06/10/25 04:20 Oxygen Delivery Room Air 06/10/25 04:20 Temperature 36.8 C 06/10/25 04:20 Pulse Rate 98 06/10/25 04:20 Respiratory Rate 14 06/10/25 04:20 Blood Pressure 151/59 H 06/10/25 04:20 Pulse Oximetry 98 06/10/25 04:20 Oxygen Delivery Room Air 06/10/25 04:20 MDM - Abdominal Pain MDM Narrative Medical decision making narrative: 60-year-old male with a past medical history including inguinal hernia status post robotic repair, history of diverticulosis and kidney stones. Patient presents with left lower quadrant pain that started 2 days ago. Gradually worsening for last 2 days. No other associated symptoms no fever, chills, nausea, vomiting, diarrhea, bloody bowel movements, dysuria, hematuria. No traumatic injuries. No inguinal masses or testicular pain. Was otherwise in his normal state of health. Patient has normal vital signs with any tachycardia, fever, hypoxemia. Slightly elevated blood pressure 151/59. Abdominal examination shows a soft and nondistended abdomen, tender to palpation left lower quadrant with no rebound or guarding. No CVA tenderness. No inguinal masses palpated. Differential includes diverticulitis, intra-abdominal abscess, kidney stone, urinary tract infection. Patient tells me that he has had CT scan showing his appendix on the other side of his body in the left side so theoretically appendicitis is also possible. CT scan with contrast ordered, given fluids and Toradol for analgesia, laboratory studies urinalysis ordered. Patient placed on monitor and re-evaluated. Laboratory studies showed leukocytosis of 14.3. No anemia or platelet concerns. Electrolytes unremarkable. Normal creatinine, normal glucose. Mildly elevated bilirubin 1.4. Normal LFTs otherwise. Urine without infection or blood. Patient had no pain upon reassessment. Remains hemodynamically stable. CT scan shows acute uncomplicated sigmoid diverticulitis consistent with patient's history and physical exam. Patient will be treated with ciprofloxacin and Flagyl and will be sent home with prescriptions for oral antibiotics and pain control medications. Given return precautions and safe for discharge. Patient's and family's questions were answered he was discharged after antibiotics. Medical Records Attestation: I reviewed the patient's medical records. Lab Data Attestation: I reviewed the patient's lab results. 06/10/25 04:35 06/10/25 04:35 Labs: Lab Results 06/10/25 Range/Units 04:35 WBC 14.3 H (4.5-10.0) K/mm3 RBC 4.86 (4.6-6.20) M/mm3 Hgb 14.6 (14.0-18.0) g/dL Hct 44.4 (42.0-52.0) % MCV 91.4 (80-100) fl MCH 30.0 (26-34) pg MCHC 32.9 (32-36) g/dl RDW 13.0 (11.5-14.5) % Plt Count 294 (150-375) k/mm3 MPV 11.0 H (7.4-10.4) fl Immature Gran % (Auto) 0.5 (0-0.5) % Neut % (Auto) 67.3 (45.5-73.1) % Lymph % (Auto) 19.5 (18.3-44.2) % Emanuel % (Auto) 11.1 H (2.6-8.5) % Eos % (Auto) 1.2 (0-4.4) % Baso % (Auto) 0.4 (0.2-1.2) % Lymph # (Auto) 2.78 (0.9-3.2) K/mm3 Emanuel # (Auto) 1.6 H (0.1-0.6) K/mm3 Eos # (Auto) 0.2 (0-0.3) K/mm3 Baso # (Auto) 0.1 (0.0-0.1) K/mm3 Abs Immat Gran (auto) 0.07 H (0.00-0.031) K/mm3 Absolute Neuts (auto) 9.6 H (1.3-6.7) K/mm3 Absolute Nucleated RBC 0.000 (0.0-0.012) K/mm3 Nucleated RBC % 0.0 (0.0-0.2) % Sodium 140 (137-145) mmol/L Potassium 4.8 (3.4-5.0) mmol/L Chloride 106 (98-107) mmol/L Carbon Dioxide 23 (22-30) mmol/L Anion Gap 11 (4-12) mmol/L BUN 19 (9-20) mg/dL Creatinine 1.13 (0.7-1.3) mg/dL Estim Creat Clear Calc 70 ml/min Estimated GFR > 60 (59 - ) Glucose 101 (65-110) mg/dL Calcium 9.1 (8.4-10.2) mg/dL Total Bilirubin 1.4 H (0.2-1.3) mg/dL AST 35 (17-59) U/L ALT 31 (6-50) U/L Alkaline Phosphatase 94 (38-126) U/L Total Protein 7.7 (6.3-8.2) g/dL Albumin 4.5 (3.5-5.1) g/dL Lipase 98 (23-300) U/L Urine Color Dark yellow (Yellow) Urine Appearance Clear (Clear) Urine pH 5.0 (5.0-9.0) Ur Specific [place] 1.023 (1.001-1.035) Urine Protein Negative (Negative) mg/dL Urine Glucose (UA) Negative (Negative) mg/dL Urine Ketones Trace H (Negative) mg/dL Ur Blood (Man) 1+ H (Negative) Urine Nitrate Negative (Negative) Urine Bilirubin Negative (Negative) Urine Urobilinogen 0.2 (<2.0) mg/dL Leukocyte Esterase Rfl Negative (Negative) TODD/UL Urine RBC 0-2 (0-2) /hpf Urine WBC 0-5 (0-3) /hpf Ur Squamous Epith Cells None seen (Few) /hpf Urine Bacteria None seen /hpf Urine Casts 0-2 Imaging Data Attestation: I personally reviewed and interpreted this imaging study as follows: My impression: Acute uncomplicated diverticulitis Discharge Plan Discharge Clinical Impression: Diverticulitis of sigmoid colon Patient Disposition: Home Condition: Stable Instructions: Antibiotic Form, Diverticulitis (DC) Additional Instructions: You have acute uncomplicated diverticulitis. We will treat this with 2 oral antibiotics as well as some pain control medications. Take several days off work for pain control. Return with any emergent concerns or worsening symptoms. Patient Language: Serbian Prescriptions: New metronidazole 500 mg tablet 500 mg PO Q12H 7 Days Qty: 14 0RF ciprofloxacin HCl [Cipro] 500 mg tablet 500 mg PO Q12H 7 Days Qty: 14 0RF ondansetron 4 mg tablet,disintegrating 4 mg PO Q8H PRN (Reason: nausea and vomiting) Qty: 14 0RF oxycodone 5 mg tablet 5 mg PO Q8H PRN (Reason: pain) Qty: 14 0RF No Action dapsone 25 mg tablet 50 mg PO DAILY Zyrtec 10 mg capsule 10 mg PO DAILY PRN (Reason: Allergy Symptoms) psyllium husk [Fiber-Caps (psyllium husk)] 0.52 gram Capsule 0.52 g PO BID Follow-up/Referrals: Devante Justice MD [Primary Care Provider, [facility]] Time of Disposition: 07:08
--- OUTSIDE RECORDS SUMMARY | 2025-06-10 04:28 | XMS_ITS | Clinical Summary ---
Author Organization [facility] Address [address] [place] [address] Care Team Providers Care Synthetic Chemist Name Role Phone Devante Justice MD Primary Care Provider [phone] Allergies Active Allergy Reactions Criticality Noted Date [...] 10/24/2017 Assessment & Plan (10/24/2017 10:05 PM ORACLE DATABASE MANAGER): Acute, stable, confirmed on CT Likely the [...] 10/24/2017 Assessment & Plan (10/24/2017 10:04 PM ORACLE DATABASE MANAGER): Acute, confirmed on CT, no evidence of volvulus or obstruction Abdominal pain more likely 2/2 diverticulitis VS WNL, lactate WNL, no evidence of acute abdomen on exam - general surgery consulted, appreciate recs 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 Assessment & Plan (10/24/2017 10:03 PM ORACLE DATABASE MANAGER): Chronic, controlled - continue dapsone daily Family [...] Years (1 - 1-dose 75+ series) 2039 Hepatitis A Vaccines Aged Out No long er eligible based on patient's age to complete this topic Meningococcal B Vaccine Aged Out No l onger eligible based on patient's age to complete this topic Meningococcal Vaccine Aged Out No nigel cinthia eligible based on patient's age to complete this topic RSV Immunizations Under 20 Months Aged Out No longer eligible b ased on patient's age to complete this topic Medical Devices Implanted Type Area Certified Health Education Specialist Device Identifier Shelf Expiration Date Model / Serial / Lot Stent Bard [place] 6fr X 26cm - [id number] Implanted:Qty: 1 on 05/18/2020 by Олег Vivas MD at [facility] Right: Ureter [employer] 10/09/2024 [id number] / / [id number] Insurance Advance Directives * Full Code (Latest Code Status on File) Date Activated Date Inactivated Comments 03/12/2020 10:36 AM 03/13/2020 3:45 PM * Full Code Date Activated Date Inactivated Comments 10/24/2017 10:45 PM 10/25/2017 2:48 PM * Full Code Date Activated Date Inactivated Comments 10/24/2017 10:08 PM 10/24/2017 10:45 PM Care Teams Synthetic Chemist Relationship Specialty Start Date End Date Devante Justice MD [address] [place] [address] PCP - General FAMILY PRACTICE 10/24/17
[2025-06-10] MEDS: LACTATED RINGERS 1,000 ML 999 ML IV CONT (04:39)
[2025-06-10] MEDS: KETOROLAC 15 MG/ML VIAL (*BKC) IV PUSH (04:40)
[2025-06-10 04:42] LABS: Hematocrit 44.4 % (42.0-52.0); Hemoglobin 14.6 g/dL (14.0-18.0); Immature Granulocyte Percent A 0.5 % (0-0.5); Lymphocytes Absolute Auto 2.78 K/mm3 (0.9-3.2); Mean Corpuscular HGB Conc 32.9 g/dl (32-36); Mean Corpuscular Hemoglobin 30.0 pg (26-34); Mean Corpuscular Volume 91.4 fl (80-100); Nucleated Red Blood Cells Absolute Auto 0.000 K/mm3 (0.0-0.012); Nucleated Red Blood Cells Perc 0.0 % (0.0-0.2); Platelet Count Result 294 k/mm3 (150-375); Red Blood Count 4.86 M/mm3 (4.6-6.20); White Blood Count 14.3 K/mm3 (4.5-10.0)
[2025-06-10 04:48] LABS: Add Urine Microscopic? YES; Appearance Urine Clear (Clear); Glucose Urine UA Negative (Negative); Leukocyte Esterase Ur Negative LEU/UL (Negative); Nitrate Urine Negative (Negative); Non Pathogenic Casts 0-2; Specific Grav Ur 1.023 (1.001-1.035)
[2025-06-10 05:24] LABS: Alanine Aminotransferase 31 U/L (6-50); Albumin Level 4.5 g/dL (3.5-5.1); Alkaline Phosphatase 94 U/L (38-126); Anion Gap 11 mmol/L (4-12); Aspartate Amino Transferase 35 U/L (17-59); Bilirubin,Total 1.4 mg/dL (0.2-1.3); Blood Urea Nitrogen 19 mg/dL (9-20); Calcium 9.1 mg/dL (8.4-10.2); Carbon Dioxide 23 mmol/L (22-30); Chloride 106 mmol/L (98-107); Estimated CRCL calculation 70 ml/min; Estimated Glomerular Filt Rate > 60; Glucose 101 mg/dL (65-110); Lipase 98 U/L (23-300); Potassium 4.8 mmol/L (3.4-5.0); Sodium 140 mmol/L (137-145); Total Protein 7.7 g/dL (6.3-8.2)
[2025-06-10 07:03] VITALS: BP 125/72; PULSE 80; RESP 12; O2SAT 98
[2025-06-10] MEDS: CIPROFLOXACIN 400 MG/D5W 200ML 200 ML 200 MG IVPB (07:25)
[2025-06-10 08:35] VITALS: BP 133/91; PULSE 81; RESP 14; TEMP 36.6; O2SAT 98
== END 2025-06-10 08:36 | disposition home or self-care (01) ==
PROVIDERS: Emergency Provider Student in an Organized Health Care Education/Training Program; PCP Family Medicine
DX: K57.32 Diverticulitis of large intestine without perforation or abscess without bleeding (principal); Z87.442 Personal history of urinary calculi; Z87.891 Personal history of nicotine dependence
CPT/HCPCS: 36415; 74177; 80053; 81001; 83690; 85025; 96361; 96365; 96375; 99284; A9270; J0744; J1885; J7120; Q9967